=== PATIENT | female | born 1985 | race Caucasian/White ===

== ENCOUNTER 2016-12-12 09:37 | Emergency (ER) | payer MEDICAID ==
[~2016-12-12] VITALS: Ht 160 cm; Wt 49.9 kg
[~2016-12-12 09:37] MED LIST: AMOX-355 PO; CODE-54 PO; FERR-57 PO; FLUO20CA25 PO; Fluoxetine Hcl PO; GABA-486 PO; HYDR-3812 PO; IBP600T1 PO; IBP800T; IBUP-1773 PO; NITR-65 PO; ONDA4TAB8 SL; OXYC-12 PO; OXYC5CAP10; POLY17PO23 PO; PREN-93 PO
--- NOTE | 2016-12-12 09:58 | ED GU-Female ---
General Chief Complaint: Abdominal/GI Problems Stated Complaint: MENSTRAL PAIN, SPOTTING, NO Nursing Triage Note: PT CO OF ABD PAIN IN [place] AND THRU TO BACK, STATES PEEING BLOOD, PT STATES THINKS MAY BE PERIOD SPOTTING, HAS PAIN AND BURNING UPON URINATION Nursing Sepsis Screen: No Definite Risk Source: patient, RN notes reviewed Exam Limitations: no limitations History of Present Illness Time seen by provider: 09:52 Initial Comments As above and below. Onset 2 days ago. Timing/Duration: other (see above) Severity/Quality: moderate, aching (04/01) Location: LLQ Radiation: left flank Activities at Onset: none Prior Genitourinary Problems: similar symptoms Modifying Factors: Worsens With Urinating Associated Symptoms: abdominal pain (LLQ), dysuria Allergies and Home Medications Allergies Coded Allergies: oxycodone (Verified Allergy, Mild, 05/08/16) Home Medications Diclofenac Potassium 50 Mg Tablet, 50 MG PO Q8H PRN for PAIN, #30 Ref 0 Prescribed by: KATHLEEN MONIQUE on 12/12/16 1304 Constitutional: see HPI Gastrointestinal: LLQ, see HPI, abdominal pain (LLQ) Genitourinary: see HPI, burning, dysuria, flank pain (left), hematuria, pain : No All Other Systemes Reviewed Negative Unless Noted: Yes (Negative excepted noted.) Past Eegyboc-Hrmmzl-Oxfqhx Hx Patient Social History Alcohol Use: Denies Use Recreational Drug Use: No Smoking Status: Never a Smoker Recent Foreign Travel: No Contact w/Someone Who Travel: No Recent Infectious Disease Expo: No Recent Hopitalizations: No Immunizations Up To Date Tetanus Booster (TDap): Less than 5yrs Date of Influenza Vaccine: Jul 08, 2013 Seasonal Allergies Seasonal Allergies: Yes Surgeries HX Surgeries: Yes Surgeries: Abdominal, Section Respiratory Hx Respiratory Disorders: No Cardiovascular Hx Cardiac Disorders: Yes Cardiac Disorders: High Cholesterol Neurological Hx Neurological Disorders: Yes (Fibro) Neurological Disorders: Seizure Disorder Reproductive System Hx Reproductive Disorders: No Sexually Transmitted Disease: No HIV/AIDS: No Female Reproductive Disorders: Denies Genitourinary Hx Genitourinary Disorders: Yes (DURING ) Genitourinary Disorders: UTI-Chronic Gastrointestinal Hx Gastrointestinal Disorders: Yes Gastrointestinal Disorders: Gastroesophageal Reflux Musculoskeletal Hx Musculoskeletal Disorders: Yes Musculoskeletal Disorders: Fibromyalgia Endocrine Hx Endocrine Disorders: Yes ("prediabetic") HEENT HX ENT Disorders: No Loss of Vision: Denies Cancer Hx Cancer: No Psychosocial Hx Psychiatric Problems: No Integumentary HX Skin/Integumentary Disorder: Yes (RIGHT HAND DRY) Blood Transfusions Hx Blood Disorders: No Adverse Reaction to a Blood Tr: No Family Medical History Significant Family History: Heart Disease, Cancer, Diabetes, GI Disease, Other Conditions/Hx Physical Exam Vital Signs Vital Sign - Last 12Hours 12/12/16 09:40 Temp 98.4 Pulse 71 Resp 20 B/P (MAP) 121/88 Pulse Ox 95 Capillary Refill : Less Than 3 Seconds General Appearance: WD/WN Cardiovascular: regular rate, rhythm Respiratory: no respiratory distress Rectal: deferred Progress/Results/Core Measures Results/Orders Lab Results My Orders Vital Signs/I&O Blood Pressure Mean: 99 Departure Impression Impression: Primary Impression: LLQ pain Additional Impression: Suspected ruptured ovarian cyst Disposition: 01 HOME, SELF-CARE Condition: Stable Departure-Patient Inst. Decision time for Depature: 13:03 Referrals: [facility] (PCP/Family) Primary Care Physician Patient Instructions: Ovarian Cyst (DC) Scripts Diclofenac Potassium (Diclofenac Potassium) 50 Mg Tablet 50 MG PO Q8H Y for PAIN, #30 TAB 0 Refills Prov: KATHLEEN MONIQUE DO 12/12/16 KATHLEEN MONIQUE DO Dec 12, 2016 09:58
[2016-12-12 10:01] LABS: BILIRUBIN,URINE NEGATIVE (NEGATIVE); KETONES,URINE NEGATIVE (NEGATIVE); LEUKOCYTE ESTERASE ,URINE 1+ (NEGATIVE); NITRITE,URINE NEGATIVE (NEGATIVE); PH,URINE 6 (5-9); PROTEIN,URINE NEGATIVE (NEGATIVE); UROBILINOGEN,URINE NORMAL (NORMAL)
--- NOTE | 2016-12-12 11:22 | Diagnostic Imaging Report ---
PROCEDURE: CT urinary tract, rule out kidney stone. TECHNIQUE: Multiple contiguous axial images were obtained through the abdomen and pelvis without the use of intravenous contrast. INDICATION: Left flank pain. FINDINGS: The lung bases appear clear. The liver, the spleen, the adrenals and the pancreas appear grossly unremarkable for an unenhanced exam. There is history of prior pancreas surgery with diminished or absent pancreatic parenchyma in the distal body and tail region. Correlate with surgical history. The kidneys and the ureters demonstrate no stones. The uterus and adnexa appear unremarkable. There urinary bladder appear unremarkable. There is no significant fluid collection or free fluid in the abdomen or pelvis. Calcifications on the left side of the pelvis are likely related to phleboliths. There is a normal caliber of the abdominal aorta. No significantly enlarged para-aortic lymph nodes seen. There is minimal stranding around the rectum seen. Correlate for possible underlying inflammatory or infectious proctitis. Osseous structures appear grossly unremarkable. IMPRESSION: 1. No urinary stones or hydronephrosis. 2. Minimal fat stranding around the rectum raise question of inflammatory or infectious proctitis. Correlate clinically. Dictated by: Dictated on workstation # [id number]
--- NOTE | 2016-12-12 12:52 | Diagnostic Imaging Report ---
EXAMINATION: US NON OB PELVIS COMP/TRANSVAG. INDICATION: Left lower quadrant pain in a 31-year-old female. TECHNIQUE: Transabdominal and transvaginal grayscale, color Doppler, and pulse duplex imaging of the pelvis was performed. FINDINGS: The uterus measures 8.8 x 6.0 x 4.1 cm. The myometrium is normal in echogenicity without discrete mass. The endometrium measures up to 0.7 cm in thickness. In the lower endometrial canal, there is an ovoid echogenic endoluminal mass measuring 1.4 x 1.3 x 0.5 cm. There is no internal flow within this endoluminal lesion. This lesion is surrounded by a small amount of simple fluid within the endometrial canal. The right ovary measures 2.7 x 3.3 x 2.6 cm. The left ovary measures 2.6 x 1.6 x 1.4 cm. Both ovaries have physiologic in appearance with small follicles present. Blood flow seen in both ovaries by color Doppler imaging and there are normal low resistant waveforms within each ovary. No suspicious adnexal mass or fluid collection. No free pelvic fluid. IMPRESSION: 1. No evidence of ovarian torsion. 2. There is a well-circumscribed echogenic lesion within the lower endometrial canal measuring 1.4 x 1.3 x 0.5 cm. This has no internal vascularity and could represent a small amount of blood products/clot; however, this could also represent a small endometrial polyp. A followup pelvic ultrasound in 6 weeks is recommended to assess for resolution. Dictated by: Dictated on workstation # [id number]
[2016-12-12] MEDS ORDERED: DICL50TA4 PO (13:04)
[2016-12-12 13:09] VITALS: BP 121/88
--- OUTSIDE RECORDS SUMMARY | 2016-12-16 04:44 | XMS REPORT | Continuity of Care Document ---
Author Author [facility] Organization [facility] Address Unknown Phone Unavailable Care Team Providers Care Electrician Constructor Supervisor Name Role Phone PCP Unavailable Source Comments Some departments are not documenting in the electronic medical record. If you do not see the information that you expected, contact Release of Information in the Health Information Management department at [phone] for further assistance in locating additional records.[facility] Active Allergies and Adverse Reactions Not on File Current Medications Not on file Active Problems Not on file Social History Tobacco Use Types Packs/Day Years Used Date Never Assessed Plan of Care Health Maintenance Due Date Last Done Comments Physical (Comprehensive) 1993 Exam Pertussis Vaccine 1997 Tetanus Vaccine 2003 Cervical Cancer Screening 2007 Influenza Vaccine 05/24/2017 Results from Last 3 Months Not on file
--- OUTSIDE RECORDS SUMMARY | 2016-12-16 04:45 | XMS REPORT ---
Author Author LINSEY DOUGHERTY [facility] eClinical[employer] Address Unknown Phone Unavailable Care Team Providers Care Tower Operator Name Role Phone LINSEY DOUGHERTY CP Unavailable Allergies, Adverse Reactions, Alerts Substance Reaction Event Type Oxycodone-Acetaminophen itching Drug Allergy latex Info Not Available Non Drug Allergy Problems Problem Type Condition Code Onset Dates Condition Status Problem Anxiety disorder, unspecified F41.9 Active Problem Other fatigue R53.83 Active Problem Oral contraceptive pill surveillance Z30.41 Active Problem Uncomplicated asthma, unspecified asthma severity J45.909 Active Problem Elevated hemoglobin A1c measurement R73.09 Active Problem Allergic rhinitis, unspecified allergic rhinitis trigger, unspecified rhinitis seasonality J30.9 Active Problem Chronic pain syndrome G89.4 Active Problem Family history of diabetes mellitus Z83.3 Active Problem Routine health maintenance Z00.00 Active Problem Moderate episode of recurrent major depressive disorder F33.1 Active Assessment Allergic rhinitis, unspecified allergic rhinitis trigger, unspecified rhinitis seasonality J30.9 Active Assessment Cough R05 Active Assessment Sore throat J02.9 Active Medications Medication Code System Code Instructions Start Date End Date Status Dosage Escitalopram Oxalate [facility] [address]-51 10 MG Orally Once a day Jul 10, 2016 1 tablet Zyrtec Allergy [facility] [address]-49 10 MG Orally Once a day Aug 03, 2016 Sep 02, 2016 1 tablet Spacer/Aero-Holding Chambers [facility] 0 - Jul 12, 2016 as directed PredniSONE [facility] [address]-68 20 MG Orally Once a day Aug 03, 2016 Aug 08, 2016 2 tablet Fluticasone Propionate [facility] [address]-69 50 MCG/ACT Nasally Twice a day Aug 03, 2016 1 spray in each nostril Procedures Procedure Coding System Code Date Office Visit, Est Pt., Level 3 CPT-4 43467 Aug 03, 2016 STREP A ASSAY W/OPTIC CPT-4 90471 Aug 03, 2016 Vital Signs Date/Time: Aug 03, 2016 Cardiac Monitoring Heart Rate 64 bpm Weight 120.8 lbs Height 63 in BMI 21.40 Index Blood Pressure Diastolic 72 mmHg Blood Pressure Systolic 130 mmHg Results Name Result Date Reference Range Unit Abnormality Flag STREP A (IN HOUSE) ----STREP A negative [id number] ----Control + [id number] ----Lot # [id number] ----Exp date [id number] Summary Purpose eClinicalWorks Submission
--- OUTSIDE RECORDS SUMMARY | 2016-12-16 04:45 | XMS REPORT ---
Author Author BENY OQUENDO Organization [employer] Address Unknown Phone Unavailable Care Team Providers Care Behavioral Health Case Manager Name Role Phone BENY OQUENDO CP Unavailable Allergies No Known Allergies Problems Problem Type Condition Code Onset Dates Condition Status Problem Anxiety disorder, unspecified F41.9 Active Problem Oral contraceptive pill surveillance Z30.41 Active Problem Major depressive disorder, single episode, moderate F32.1 Active Problem Routine health maintenance Z00.00 Active Problem Moderate episode of recurrent major depressive disorder F33.1 Active Problem Elevated hemoglobin A1c measurement R73.09 Active Problem Major depressive disorder, single episode, unspecified F32.9 Active Problem Other fatigue R53.83 Active Problem Chronic pain syndrome G89.4 Active Problem Family history of diabetes mellitus Z83.3 Active Medications No Known Medications Results No Known Results Summary Purpose eClinicalWorks Submission
--- OUTSIDE RECORDS SUMMARY | 2016-12-16 04:45 | XMS REPORT ---
Author Author BENY OQUENDO Organization [employer] Address Unknown Phone Unavailable Care Team Providers Care Oil Driller Name Role Phone BENY OQUENDO CP Unavailable [...] of recurrent major depressive disorder F33.1 Active Medications No Known Medications Results No Known Results Summary Purpose eClinicalWorks Submission
--- OUTSIDE RECORDS SUMMARY | 2016-12-16 04:45 | XMS REPORT ---
Author Author [address]ENDY STRE[address] Organization [employer] Address Unknown Phone Unavailable Care Team Providers Care Icu Rn Name Role Phone WENDY STRE[address] CP Unavailable Allergies No Known Allergies Problems Problem Type Condition Code Onset Dates Condition Status Problem Major depressive disorder, single episode, moderate F32.1 Active Problem Anxiety disorder, unspecified F41.9 Active Problem Moderate episode of recurrent major depressive disorder F33.1 Active Problem Chronic pain syndrome G89.4 Active Problem Routine health maintenance Z00.00 Active Problem Other fatigue R53.83 Active Problem Oral contraceptive pill surveillance Z30.41 Active Problem Family history of diabetes mellitus Z83.3 Active Problem Major depressive disorder, single episode, unspecified F32.9 Active Medications No Known Medications Results No Known Results Summary Purpose eClinicalWorks Submission
--- OUTSIDE RECORDS SUMMARY | 2016-12-16 04:45 | XMS REPORT ---
Author Author ANT HOLLOWAY Organization [employer] Address Unknown Phone Unavailable Care Team Providers Care Exceptional Needs Teacher Name Role Phone ANT HOLLOWAY CP Unavailable Allergies, Adverse Reactions, Alerts Substance Reaction Event Type latex Info Not Available Non Drug Allergy Problems Problem Type Condition Code Onset Dates Condition Status Problem Postnasal drip 784.91 Active Problem Unspecified hereditary and idiopathic peripheral neuropathy 356.9 Active Problem Lumbago 724.2 Active Problem Unspecified disorder of the teeth and supporting structures 525.9 Active Assessment Dental examination Z01.20 Active Problem Nonallopathic lesion of abdomen and other sites, not elsewhere classified 739.9 Active Problem Depressive disorder, not elsewhere classified 311 Active Problem Encounter for long-term (current) use of other medications V58.69 Active Problem Anxiety state, unspecified 300.00 Active Problem Dizziness and giddiness 780.4 Active Problem Headache 784.0 Active Problem Unspecified symptom associated with female genital organs 625.9 Active Problem Other malaise and fatigue 780.79 Active Problem Acute sinusitis, unspecified 461.9 Active Problem Chest pain, unspecified 786.50 Active Problem Unspecified myalgia and myositis 729.1 Active Problem Pain in joint, site unspecified 719.40 Active Problem Unspecified backache 724.5 Active Problem Chronic rhinitis 472.0 Active Problem Abdominal pain, generalized 789.07 Active Problem Abdominal pain, unspecified site 789.00 Active Medications Medication Code System Code Instructions Start Date End Date Status Dosage Fluoxetine NDC 0 not defined Procedures Procedure Coding System Code Date INTRAORL-PERIAPICAL 1 FILM 52055 CPT-4 D0220 Aug 02, 2015 BITEWING - SINGLE FILM CPT-4 D0270 Aug 02, 2015 LTD ORAL EVALUATION - PROBLEM FOCUS CPT-4 D0140 Aug 02, 2015 EXTRAC ERUPTED TOOTH/EXPOSED ROOT CPT-4 D7140 Aug 02, 2015 Vital Signs Date/Time: Aug 02, 2015 Blood Pressure Diastolic 61 mmHg Blood Pressure Systolic 112 mmHg Results No Known Results Summary Purpose eClinicalWorks Submission
--- OUTSIDE RECORDS SUMMARY | 2016-12-16 04:45 | XMS REPORT ---
Author Author LINSEY DOUGHERTY [facility] eClinicalWorks Address Unknown Phone Unavailable Care Team Providers Care Structural Metal Worker Name Role Phone LINSEY DOUGHERTY CP Unavailable Allergies, Adverse Reactions, Alerts Substance Reaction Event Type Oxycodone-Acetaminophen itching Drug Allergy latex Info Not Available Non Drug Allergy Problems Problem Type Condition Code Onset Dates Condition Status Assessment Acute non-recurrent frontal sinusitis J01.10 Active Problem Oral contraceptive pill surveillance Z30.41 Active Problem Anxiety disorder, unspecified F41.9 Active Problem Elevated hemoglobin A1c measurement R73.09 Active Problem Routine health maintenance Z00.00 Active Problem Uncomplicated asthma, unspecified asthma severity J45.909 Active Problem Family history of diabetes mellitus Z83.3 Active Problem Other fatigue R53.83 Active Problem Moderate episode of recurrent major depressive disorder F33.1 Active Problem Chronic pain syndrome G89.4 Active Assessment Elevated hemoglobin A1c measurement R73.09 Active Assessment Uncomplicated asthma, unspecified asthma severity J45.909 Active Assessment Right otitis media, unspecified chronicity, unspecified otitis media type H66.91 Active Medications Medication Code System Code Instructions Start Date End Date Status Dosage Escitalopram Oxalate [facility] [address]-14 10 MG Orally Jul 10, 2016 0.5mg tablet daily X 2 weeks then one tablet daily Spacer/Aero-Holding Chambers [facility] 0 - Jul 12, 2016 as directed ProAir HFA [facility] [address]-92 108 (90 Base) MCG/ACT Inhalation every 4 hrs Jul 12, 2016 2 puffs as needed Augmentin [facility] [address]-77 875-125 MG Orally every 12 hrs Jul 12, 2016 Jul 22, 2016 1 tablet Procedures Procedure Coding System Code Date MEASURE BLOOD OXYGEN LEVEL CPT-4 87391 Jul 12, 2016 Office Visit, Est Pt., Level 3 CPT-4 08298 Jul 12, 2016 Vital Signs Date/Time: Jul 12, 2016 Cardiac Monitoring Heart Rate 64 bpm Weight 119.0 lbs Height 63 in BMI 21.08 Index Oximetry w/ oxygen @ 2L:95 % Blood Pressure Diastolic 86 mmHg Blood Pressure Systolic 124 mmHg Results No Known Results Summary Purpose eClinicalWorks Submission
--- OUTSIDE RECORDS SUMMARY | 2016-12-16 04:45 | XMS REPORT ---
Author Author [address]ENDY [address] Organization [employer] Address Unknown Phone Unavailable Care Team Providers Care Forensic Engineer Name Role Phone WENDY STREET CP Unavailable Allergies No Known Allergies Problems Problem Type Condition Code Onset Dates Condition Status Assessment Anxiety disorder, unspecified F41.9 Active Problem Anxiety disorder, unspecified F41.9 Active Assessment Moderate episode of recurrent major depressive disorder F33.1 Active Problem Routine health maintenance Z00.00 Active Problem Moderate episode of recurrent major depressive disorder F33.1 Active Problem Elevated hemoglobin A1c measurement R73.09 Active Problem Other fatigue R53.83 Active Problem Oral contraceptive pill surveillance Z30.41 Active Problem Chronic pain syndrome G89.4 Active Problem Family history of diabetes mellitus Z83.3 Active Medications No Known Medications Procedures Procedure Coding System Code Date Psychotherapy, patient &/family, 30 minutes, established patient CPT-4 55614 Jul 03, 2016 Results No Known Results Summary Purpose eClinicalWorks Submission
--- OUTSIDE RECORDS SUMMARY | 2016-12-16 04:45 | XMS REPORT ---
Author Author [address]ENDY ST[address] Organization [facility] Address [address] [place] [address] Care Team Providers Care Child Care Centre Director Name Role Phone WENDY STREET Unavailable PROBLEMS Type Condition ICD9-CM Code [id number] Code Onset Dates Condition Status SNOMED Code Problem Oral contraceptive pill surveillance Z30.41 Active 011463450 Problem Anxiety disorder, unspecified F41.9 Active 539866847 Problem Elevated hemoglobin A1c measurement R73.09 Active 950899260 Problem Routine health maintenance Z00.00 Active 343203704 Problem Family history of diabetes mellitus Z83.3 Active 657685989 Problem Other fatigue R53.83 Active 46378483 Problem Moderate episode of recurrent major depressive disorder F33.1 Active 381101902 Problem Chronic pain syndrome G89.4 Active 422316814 ALLERGIES Unknown Allergies SOCIAL HISTORY No smoking Hx information available PLAN OF CARE VITAL SIGNS MEDICATIONS Unknown Medications RESULTS No Results PROCEDURES No Known procedures IMMUNIZATIONS No Known Immunizations
--- OUTSIDE RECORDS SUMMARY | 2016-12-16 04:45 | XMS REPORT ---
Author Author KATHLEEN BAUTISTA [facility] [employer] Address Unknown Phone Unavailable Care Team Providers Care Enrollment Management Vice President Name Role Phone KATHLEEN BAUTISTA CP Unavailable Allergies, Adverse Reactions, Alerts Substance Reaction Event Type latex Info Not Available Non Drug Allergy Problems Problem Type Condition Code Onset Dates Condition Status Assessment Gastroenteritis K52.9 Active Problem Major depressive disorder, single episode, moderate F32.1 Active Problem Anxiety disorder, unspecified F41.9 Active Assessment Primary insomnia F51.01 Active Assessment Fibromyalgia M79.7 Active Problem Moderate episode of recurrent major depressive disorder F33.1 Active Problem Chronic pain syndrome G89.4 Active Problem Routine health maintenance Z00.00 Active Problem Other fatigue R53.83 Active Problem Oral contraceptive pill surveillance Z30.41 Active Problem Family history of diabetes mellitus Z83.3 Active Problem Major depressive disorder, single episode, unspecified F32.9 Active Medications Medication Code System Code Instructions Start Date End Date Status Dosage Amitriptyline HCl [facility] [address]-95 25 MG Orally Once a day April 11, 2016 1 tablet Zofran [facility] [address]-74 8 MG Orally Once a day April 11, 2016 1 tablet Procedures Procedure Coding System Code Date URINALYSIS, AUTO, W/O SCOPE CPT-4 53503 April 11, 2016 URINE TEST CPT-4 07357 April 11, 2016 Office Visit, Est Pt., Level 3 CPT-4 68136 April 11, 2016 Vital Signs Date/Time: April 11, 2016 Cardiac Monitoring Heart Rate 70 bpm Weight 121.2 lbs Height 63 in Blood Pressure Diastolic 74 mmHg Blood Pressure Systolic 114 mmHg Results No Known Results Summary Purpose eClinicalWorks Submission
--- OUTSIDE RECORDS SUMMARY | 2016-12-16 04:46 | XMS REPORT ---
Author Author [address]ENDY [address] Organization [facility] Address [address] [place] [address] Care Team Providers Care Valuation Manager Name Role Phone WENDY STREET Unavailable PROBLEMS Type Condition ICD9-CM Code [id number] Code Onset Dates Condition Status SNOMED Code Assessment Anxiety disorder, unspecified F41.9 May, Active 920362440 Problem Oral contraceptive pill surveillance Z30.41 Active 474917754 Problem Anxiety disorder, unspecified F41.9 Active 591249786 Assessment Major depressive disorder, single episode, moderate F32.1 May, Active 24997591 Problem Elevated hemoglobin A1c measurement R73.09 Active 670113083 Problem Routine health maintenance Z00.00 Active 240530315 Problem Family history of diabetes mellitus Z83.3 Active 716553740 Problem Other fatigue R53.83 Active 63289683 Problem Moderate episode of recurrent major depressive disorder F33.1 Active 759419903 Problem Chronic pain syndrome G89.4 Active 060220374 ALLERGIES Unknown Allergies SOCIAL HISTORY No smoking Hx information available PLAN OF CARE VITAL SIGNS MEDICATIONS Unknown Medications RESULTS No Results PROCEDURES Procedure Date Ordered Related Diagnosis Body Site Psychotherapy, patient &/family, 45 minutes, established patient Jun 11, 2016 IMMUNIZATIONS No Known Immunizations
--- OUTSIDE RECORDS SUMMARY | 2016-12-16 04:46 | XMS REPORT ---
Author Author [address]ENDY [address] Organization [employer] Address Unknown Phone Unavailable Care Team Providers Care Pega Developer Name Role Phone WENDY STREET CP Unavailable Allergies No Known Allergies Problems Problem Type Condition Code Onset Dates Condition Status Problem Anxiety disorder, unspecified F41.9 Active Problem Oral contraceptive pill surveillance Z30.41 Active Problem Major depressive disorder, single episode, moderate F32.1 Active Assessment Anxiety disorder, unspecified F41.9 Active Assessment Major depressive disorder, single episode, moderate [...] patient &/family, 30 minutes, established patient CPT-4 15267 May 01, 2016 Results No Known Results Summary Purpose eClinicalWorks Submission
--- OUTSIDE RECORDS SUMMARY | 2016-12-16 04:46 | XMS REPORT ---
Author Author REJI ESQUIVEL [facility] [employer] Address Unknown Phone Unavailable Care Team Providers Care Weight Engineer Name Role Phone REJI ESQUIVEL CP Unavailable Allergies No Known Allergies Problems Problem Type Condition Code Onset Dates Condition Status Problem Postnasal drip 784.91 Active Problem Unspecified hereditary and idiopathic peripheral neuropathy 356.9 Active Problem Lumbago 724.2 Active Problem Unspecified disorder of the teeth and supporting structures 525.9 Active Problem Nonallopathic lesion of abdomen and [...] Abdominal pain, unspecified site 789.00 Active Medications No Known Medications Results No Known Results Summary Purpose eClinicalWorks Submission
--- OUTSIDE RECORDS SUMMARY | 2016-12-16 04:46 | XMS REPORT ---
Author Author [address]ATH[address] Organization [employer] Address Unknown Phone Unavailable Care Team Providers Care Toolmaker Name Role Phone BHARATHI [address] CP Unavailable Allergies, Adverse Reactions, Alerts Substance Reaction Event Type Oxycodone-Acetaminophen itching Drug Allergy latex Info Not Available Non Drug Allergy Problems Problem Type Condition Code Onset Dates Condition Status Problem Anxiety disorder, unspecified F41.9 Active Assessment Major depressive disorder, single episode, unspecified F32.9 Active Problem Routine health maintenance Z00.00 Active Problem Moderate episode of recurrent major depressive disorder F33.1 Active Problem Elevated hemoglobin A1c measurement R73.09 Active Problem Other fatigue R53.83 Active Problem Oral contraceptive pill surveillance Z30.41 Active Problem Chronic pain syndrome G89.4 Active Problem Family history of diabetes mellitus Z83.3 Active Medications Medication Code System Code Instructions Start Date End Date Status Dosage Escitalopram Oxalate [facility] [address]-44 10 MG Orally Jul 10, 2016 0.5mg tablet daily X 2 weeks then one tablet daily Procedures Procedure Coding System Code Date Office Visit, New Pt., Level 3 CPT-4 73626 Jul 10, 2016 Vital Signs Date/Time: Jul 10, 2016 Cardiac Monitoring Heart Rate 60 bpm Weight 122.0 lbs Height 63 in BMI 21.61 Index Blood Pressure Diastolic 69 mmHg Blood Pressure Systolic 131 mmHg Results No Known Results Summary Purpose [employer] Submission
--- OUTSIDE RECORDS SUMMARY | 2016-12-16 04:46 | XMS REPORT ---
Author Author [address]ENDY [address] Organization [employer] Address Unknown Phone Unavailable Care Team Providers Care Quality Assurance Supervisor Body Name Role Phone WENDY ST[address] CP Unavailable Allergies No Known Allergies Problems Problem Type Condition Code Onset Dates Condition Status Problem Anxiety disorder, unspecified F41.9 Active Problem Routine health maintenance Z00.00 Active [...]
--- OUTSIDE RECORDS SUMMARY | 2016-12-16 04:46 | XMS REPORT ---
Author Author [address]END[address] Organization [facility] Address [address] [place] [address] Care Team Providers Care Director Of [employer] Name Role Phone WENDY STRE[address] Unavailable PROBLEMS Type Condition ICD9-CM Code [id number] Code Onset Dates Condition Status SNOMED Code Assessment Moderate episode of recurrent major depressive disorder F33.1 13 May, 2016 Active 32597049 Problem Oral contraceptive pill surveillance Z30.41 Active 469249563 Problem Anxiety disorder, unspecified F41.9 Active 699569374 Problem Elevated hemoglobin A1c measurement R73.09 Active 663275463 Problem Routine health maintenance Z00.00 Active 723355640 Problem Family history of diabetes mellitus Z83.3 Active 682543472 Problem Other fatigue R53.83 Active 72355363 Problem Moderate episode of recurrent major depressive disorder F33.1 Active 486558260 Problem Chronic pain syndrome G89.4 Active [id number] ALLERGIES Unknown Allergies SOCIAL HISTORY No smoking Hx information available PLAN OF CARE VITAL SIGNS MEDICATIONS Unknown Medications RESULTS No Results PROCEDURES Procedure Date Ordered Related Diagnosis Body Site Psychotherapy, patient &/family, 30 minutes, established patient Jun 05, 2016 IMMUNIZATIONS No Known Immunizations
--- OUTSIDE RECORDS SUMMARY | 2016-12-16 04:47 | XMS REPORT ---
Author Author [address]ENDY [address] Organization [facility] Address [address] [place] [address] Care Team Providers Care Electric Motor Assembler And Tester Name Role Phone WENDY STRE[address] Unavailable PROBLEMS Type Condition ICD9-CM Code [id number] Code Onset Dates Condition Status SNOMED Code Assessment Major depressive disorder, single episode, moderate F32.1 27 May, 2016 Active 03190116 Problem Oral contraceptive pill surveillance Z30.41 Active 939333490 Problem Anxiety disorder, unspecified F41.9 Active 317559107 Problem Elevated hemoglobin A1c measurement R73.09 Active 500147720 Problem Routine health maintenance Z00.00 Active 130378418 Problem Family history of diabetes mellitus Z83.3 Active 485866020 Problem Other fatigue R53.83 Active 91599539 Problem Moderate episode of recurrent major depressive disorder F33.1 Active 562740901 Problem Chronic pain syndrome G89.4 Active 921367489 ALLERGIES Unknown Allergies SOCIAL HISTORY No smoking Hx information available PLAN OF CARE VITAL SIGNS MEDICATIONS Unknown Medications RESULTS No Results PROCEDURES Procedure Date Ordered Related Diagnosis Body Site Psychotherapy, patient &/family, 30 minutes, established patient Jun 19, 2016 IMMUNIZATIONS No Known Immunizations
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
--- OUTSIDE RECORDS SUMMARY | 2016-12-16 04:47 | XMS REPORT ---
Author Author BENY OQUENDO Organization [employer] Address Unknown Phone Unavailable Care Team Providers Care Hotbed Transfer Operator Name Role Phone BENY OQUENDO CP Unavailable Allergies, Adverse Reactions, Alerts Substance [...] Family history of diabetes mellitus Z83.3 Active Assessment Elevated hemoglobin A1c measurement R73.09 Active Assessment Other fatigue R53.83 Active Assessment Chronic pain syndrome G89.4 Active Assessment Anxiety disorder, unspecified F41.9 Active Medications Medication Code System Code Instructions Start Date End Date Status Dosage Gabapentin [facility] [address]-10 100 MG Orally Once a day at bedtime May 01, 2016 1 [place] [address]-67 8 MG Orally Once a day April 11, 2016 1 tablet Fluoxetine NDC 0 20 mg by oral route Once a day 1 capsules Procedures Procedure Coding System Code Date Office Visit, Est Pt., Level 3 CPT-4 44059 May 01, 2016 Vital Signs Date/Time: May 01, 2016 Cardiac Monitoring Heart Rate 68 bpm Weight 120.0 lbs Height 63 in BMI 21.25 Index Blood Pressure Diastolic 68 mmHg Blood Pressure Systolic 102 mmHg Results No Known Results Summary Purpose [employer] Submission
== END 2016-12-12 13:09 | disposition home or self-care (01) ==
LOC: ER 09:37
DX: R10.32 Left lower quadrant pain (principal)
CPT/HCPCS: 74176; 76830; 76856; 81000; 84703; 99282

== ENCOUNTER 2023-01-15 08:32 | Emergency (ER) | payer BC ==
[~2023-01-15] VITALS: Ht 160 cm; Wt 53.9 kg
[~2023-01-15 08:32] MED LIST changes: +ACHD5005 PO; +DICL50TA4 PO; -FLUO20CA25 PO; +FLUO20CA48 PO; -HYDR-3812 PO
[2023-01-15 09:17] LABS: BILIRUBIN,URINE NEGATIVE (NEGATIVE); CLARITY,URINE CLEAR; COLOR,URINE YELLOW; GLUCOSE, URINE (UA) NEGATIVE (NEGATIVE); KETONES,URINE NEGATIVE (NEGATIVE); LEUKOCYTE ESTERASE ,URINE NEGATIVE (NEGATIVE); NITRITE,URINE NEGATIVE (NEGATIVE); PROTEIN,URINE NEGATIVE (NEGATIVE)
--- NOTE | 2023-01-15 09:30 | ED Abdominal Pain ---
General Chief Complaint: Abdominal/GI Problems Stated Complaint: ABD PAIN | BACK PAIN Nursing Triage Note: PT AMB TO RM 9 WITH COMPLAINT LEFT SIDED ABD PAIN FOR 2 WEEKS. STATES HAS WORSENED OVER THE LAST WEEK. FEELS NAUSEATED. UNSURE OF LAST MENSTRUAL CYCLE. Source of Information: Patient Exam Limitations: No Limitations History of Present Illness Date Seen by Provider: Jan 15, 2023 Time Seen by Provider: 08:42 Initial Comments This 37-year-old woman presents to the emergency room with concerns about left- sided and lower abdominal pain for about 2 weeks with associated nausea. She has an unknown LMP, but she believes she had a cycle in October. Urine test was positive. Pain is across the lower abdomen, left greater than right and radiates up into the left abdomen, flank, and back. She has had associated nausea without vomiting, feeling of abdominal pressure, and constipation. She denies fevers. She reports no urinary symptoms. She is a 7 para 5 with a miscarriage and 5 previous C-sections. 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 She does not currently have a women's health provider. Allergies and Home Medications Allergies Coded Allergies: oxycodone (Verified Allergy, Mild, 05/08/16) Patient Home Medication List Home Medication List Reviewed: Yes Diclofenac Potassium (Diclofenac Potassium) 50 Mg Tablet, 50 MG PO Q8H PRN for PAIN Prescribed by: KATHLEEN MONIQUE on 12/12/16 2416 Review of Systems Review of Systems Constitutional: no symptoms reported EENTM: No Symptoms Reported Respiratory: No Symptoms Reported Cardiovascular: No Symptoms Reported Gastrointestinal: See HPI Genitourinary: See HPI Musculoskeletal: no symptoms reported Skin: no symptoms reported Psychiatric/Neurological: No Symptoms Reported Endocrine: No Symptoms Reported Hematologic/Lymphatic: No Symptoms Reported Past Ulhqqua-Bqxeod-Qphswm Hx Patient Social History Tobacco Use?: No Use of E-Cig and/or Vaping dev: No Substance use?: No Alcohol Use?: No Pt feels they are or have been: No Immunizations Up To Date Tetanus Booster (TDap): Less than 5yrs Seasonal Allergies Seasonal Allergies: Yes Past Medical History Surgeries: Yes Abdominal, Section (X5) Respiratory: No Cardiac: Yes High Cholesterol Neurological: No Seizure Disorder : Yes Hx : 7 Hx Para: 5 Hx Total # of Abortions (Sp): 1 Reproductive Disorders: No Female Reproductive Disorders: Denies Sexually Transmitted Disease: No HIV/AIDS: No UTI-Chronic Gastrointestinal: Yes Gastroesophageal Reflux Musculoskeletal: Yes Fibromyalgia Endocrine: No HEENT: No Loss of Vision: Denies Cancer: No Psychosocial: No Integumentary: No Adverse Reaction/Blood Tranf: No Family Medical History Heart Disease, Cancer, Diabetes, GI Disease, Other Conditions/Hx Physical Exam Vital Signs Vital Signs - First Documented 01/15/23 08:55 Temp 36.5 Pulse 66 Resp 18 B/P (MAP) 122/86 (98) Pulse Ox 98 O2 Delivery Room Air Capillary Refill : Less Than 3 Seconds Height/Weight/BMI Height: 5'3.00" Weight: 110lbs. oz. 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, no motor/sensory deficits, alert, normal mood/affect, oriented x 3 Skin: normal color, warm/dry Progress/Results/Core Measures Results/Orders Lab Results Laboratory Tests Test 01/15/23 09:00 01/15/23 09:47 Range/Units Urine Color YELLOW Urine Clarity CLEAR Urine pH 6.0 5-9 Urine Specific [place] 1.020 1.016-1.022 Urine Protein NEGATIVE NEGATIVE Urine Glucose (UA) NEGATIVE NEGATIVE Urine Ketones NEGATIVE NEGATIVE Urine Nitrite NEGATIVE NEGATIVE Urine Bilirubin NEGATIVE NEGATIVE Urine Urobilinogen 0.2 < = 1.0 MG/DL Urine Leukocyte Esterase NEGATIVE NEGATIVE Urine RBC (Auto) NEGATIVE NEGATIVE Urine RBC NONE /HPF Urine WBC 2-5 /HPF Urine Squamous Epithelial Cells 2-5 /HPF Urine Crystals PRESENT H /LPF Urine Amorphous Sediment RARE JONI URATES H /LPF Urine Bacteria FEW H /HPF Urine Casts NONE /LPF Urine Mucus SMALL H /LPF Urine Culture Indicated YES White Blood Count 4.6 4.3-11.0 10^3/uL Red Blood Count 4.45 3.80-5.11 10^6/uL Hemoglobin 11.3 L 11.5-16.0 g/dL Hematocrit 35 35-52 % Mean Corpuscular Volume 79 L 80-99 fL Mean Corpuscular Hemoglobin 25 25-34 pg Mean Corpuscular Hemoglobin Concent 32 32-36 g/dL Red Cell Distribution Width 15.1 H 10.0-14.5 % Platelet Count 212 130-400 10^3/uL Mean Platelet Volume 11.3 9.0-12.2 fL Immature Granulocyte % (Auto) 0 % Neutrophils (%) (Auto) 65 42-75 % Lymphocytes (%) (Auto) 25 12-44 % Monocytes (%) (Auto) 8 0-12 % Eosinophils (%) (Auto) 2 0-10 % Basophils (%) (Auto) 0 0-10 % Neutrophils # (Auto) 3.0 1.8-7.8 10^3/uL Lymphocytes # (Auto) 1.2 1.0-4.0 10^3/uL Monocytes # (Auto) 0.4 0.0-1.0 10^3/uL Eosinophils # (Auto) 0.1 0.0-0.3 10^3/uL Basophils # (Auto) 0.0 0.0-0.1 10^3/uL Immature Granulocyte # (Auto) 0.0 0.0-0.1 10^3/uL Sodium Level 138 135-145 MMOL/L Potassium Level 3.9 3.6-5.0 MMOL/L Chloride Level 108 H 98-107 MMOL/L Carbon Dioxide Level 22 21-32 MMOL/L Anion Gap 8 5-14 MMOL/L Blood Urea Nitrogen 10 7-18 MG/DL Creatinine 0.71 0.60-1.30 MG/DL Estimat Glomerular Filtration Rate 113 BUN/Creatinine Ratio 14 Glucose Level 83 70-105 MG/DL Calcium Level 9.0 8.5-10.1 MG/DL Corrected Calcium 8.8 8.5-10.1 MG/DL Total Bilirubin 0.5 0.1-1.0 MG/DL Aspartate Amino Transf (AST/SGOT) 15 5-34 U/L Alanine Aminotransferase (ALT/SGPT) 8 0-55 U/L Alkaline Phosphatase 39 L 40-136 U/L C-Reactive Protein High Sensitivity 0.07 0.00-0.50 MG/DL Total Protein 6.9 6.4-8.2 GM/DL Albumin 4.3 3.2-4.5 GM/DL Lipase 15 8-78 U/L Human Chorionic Gonadotropin, Quant [id number] H <5 MIU/ML My Orders Orders - LUIS M BABB MD Ua Culture If Indicated (01/15/23 08:42) Urine Bedside (01/15/23 09:10) Cbc With Automated Diff (01/15/23 09:22) Comprehensive Metabolic Panel (01/15/23 09:22) Hs C Reactive Protein (01/15/23 09:22) Lipase (01/15/23 09:22) Ed Iv/Invasive Line Start (01/15/23 09:22) Hcg,Quantitative (01/15/23 09:29) Us Ob<14 Wks Sngle W/Transvag (01/15/23 09:30) Urine Culture (01/15/23 09:00) Vital Signs/I&O 01/15/23 08:55 Temp 36.5 Pulse 66 Resp 18 B/P (MAP) 122/86 (98) Pulse Ox 98 O2 Delivery Room Air Blood Pressure Mean: 98 Progress Progress Note #1: Time: 10:17 Progress Note Patient has been interviewed and examined. She by history has an early with persistent abdominal pain. No ultrasound has yet been performed. Ultrasound is being obtained to rule out ectopic or other pathology. Urinalysis is unremarkable by my interpretation. Remainder of labs are pending at this time. Progress Note #2: Time: 11:31 Progress Note Ultrasound and hCG levels were both consistent with an intrauterine gestation at 4 to 6 weeks gestational age. I discussed the imaging with the clinical technician and reviewed the radiologist's report. The remainder of the labs on the CBC, CMP, lipase and urinalysis were unremarkable by my interpretation. Discharge instructions were reviewed with the patient. Diagnostic Imaging Diagonstic Imaging: Ultrasound Plain Films/CT/US/NM/MRI: pelvis Comments NAME: JAYLENE ARMENTA MED REC#: [id number] PT STATUS: REG ER : 1985 PHYSICIAN: LUIS M BABB MD ADMIT DATE: 01/15/23/ER Draft Date of Exam:01/15/23 US OB<14 WKS SNGLE W/TRANSVAG INDICATION: Abdominal pain. Size and dates. FINDINGS: There is an intrauterine gestational sac and yolk sac. No measurable or identifiable pole or independent cardiac activity is found; therefore, viability could be neither confirmed nor refuted. No varun-sac collection or subchorionic hemorrhage. No evidence for an extrauterine gestation. The mean sac diameter correlates with an age of 5 weeks 5 days. There is a likely corpus luteal cyst in the right ovary measuring 1.5 cm. No adnexal torsion. No free fluid. IMPRESSION: 1. Intrauterine gestational sac and yolk sac; however, viability could not be confirmed at this early stage. Consider serial beta hCG versus short-term sonographic followup. 2. No findings of an extrauterine gestation. 3. The mean sac diameter correlates with an age of 5 weeks 5 days. Dictated on workstation # [id number] Dict: 01/15/23 1112 Trans: 01/15/23 1117 [id number] Interpreted by: BRYAN OKEEFE Departure Impression Primary Impression: Positive test Additional Impressions: Nausea alone Left sided abdominal pain Constipation Qualified Codes: K59.00 - Constipation, unspecified Disposition: 01 HOME, SELF-CARE Condition: Stable Departure-Patient Inst. Decision time for Depature: 11:27 Referrals: NO,LOCAL PHYSICIAN (PCP/Family) Primary Care Physician Patient Instructions: Abdominal Pain, Adult ED, Constipation in Adults Add. Discharge Instructions: Your test was positive in the ER, and your hCG hormone level is consistent with 4 to 6 weeks gestational age. Your ultrasound demonstrated a gestational sac within the uterus measuring 4 to 6 weeks gestational age. No ectopic or other abnormality was seen on the ultrasound. Follow-up with an maintenance welder should be pursued as soon as possible. Since a heartbeat was not seen in this early gestation, a repeat hormone level or repeat ultrasound may be advised by the maintenance welder. Your abdominal pain may be related to constipation. You may use MiraLAX as you are accustomed to for treatment of constipation. Also drink plenty of clear liquids to stay well-hydrated. Eating smaller quantities more often can help reduce nausea. Eat plenty of fruits, vegetables, and whole grains in your diet. Minimize meats, cheeses, processed foods, and fast foods as these may worsen constipation. Juices such as apple juice and prune juice may be helpful in reducing constipation as well. You may take Tylenol (acetaminophen) up to 650 mg every 6 hours as needed for pain. Return to the emergency room if you have worsening of symptoms despite following these instructions. All discharge instructions reviewed with patient and/or family. Voiced understanding. LUIS M BABB MD Jan 15, 2023 09:30
[2023-01-15 09:35] LABS: AMORPHOUS SEDIMENT,UR RARE AMOR URATES /LPF; BACTERIA,URINE FEW /HPF
[2023-01-15 09:55] LABS: BASOPHILS % (AUTO) 0 % (0-10); EOSINOPHILS # (AUTO) 0.1 10^3/uL (0.0-0.3); EOSINOPHILS % (AUTO) 2 % (0-10); HEMATOCRIT 35 % (35-52); HEMOGLOBIN 11.3 g/dL (11.5-16.0); LYMPHOCYTES # (AUTO) 1.2 10^3/uL (1.0-4.0); LYMPHOCYTES % (AUTO) 25 % (12-44); MEAN CORPUSCULAR HEMOGLOBIN 25 pg (25-34); MEAN CORPUSCULAR HGB CONC 32 g/dL (32-36); MEAN CORPUSCULAR VOLUME 79 fL (80-99); MEAN PLATELET VOLUME 11.3 fL (9.0-12.2); MONOCYTES # (AUTO) 0.4 10^3/uL (0.0-1.0); MONOCYTES % (AUTO) 8 % (0-12); NEUTROPHILS % (AUTO) 65 % (42-75); PLATELET COUNT 212 10^3/uL (130-400); WHITE BLOOD COUNT 4.6 10^3/uL (4.3-11.0)
[2023-01-15 10:11] LABS: ALBUMIN 4.3 GM/DL (3.2-4.5); POTASSIUM 3.9 MMOL/L (3.6-5.0)
[2023-01-15 10:13] LABS: TOTAL PROTEIN 6.9 GM/DL (6.4-8.2)
[2023-01-15 10:15] LABS: BILIRUBIN,TOTAL 0.5 MG/DL (0.1-1.0)
[2023-01-15 10:17] LABS: CREATININE SERUM 0.71 MG/DL (0.60-1.30)
--- NOTE | 2023-01-15 11:18 | Diagnostic Imaging Report ---
INDICATION: Abdominal pain. Size and dates. FINDINGS: There is an intrauterine gestational sac and yolk sac. No measurable or identifiable pole or independent cardiac activity is found; therefore, viability could be neither confirmed nor refuted. No varun-sac collection or subchorionic hemorrhage. No evidence for an extrauterine gestation. The mean sac diameter correlates with an age of 5 weeks 5 days. There is a likely corpus luteal cyst in the right ovary measuring 1.5 cm. No adnexal torsion. No free fluid. IMPRESSION: 1. Intrauterine gestational sac and yolk sac; however, viability could not be confirmed at this early stage. Consider serial beta hCG versus short-term sonographic followup. 2. No findings of an extrauterine gestation. 3. The mean sac diameter correlates with an age of 5 weeks 5 days. Dictated by: Dictated on workstation # [id number]
[2023-01-15 11:48] VITALS: BP 118/84
== END 2023-01-15 11:48 | disposition home or self-care (01) ==
LOC: EDUNIT# 08:32 → ER 08:37
DX: O99.611 Diseases of the digestive system complicating pregnancy, first trimester (principal); K59.00 Constipation, unspecified; O26.891 Other specified pregnancy related conditions, first trimester; R11.0 Nausea; Z3A.01 Less than 8 weeks gestation of pregnancy
CPT/HCPCS: 36415; 76801; 76817; 80053; 81000; 83690; 84702; 84703; 85025; 86141; 87088

== ENCOUNTER 2023-01-18 12:01 | Emergency (ER) | payer BC ==
[~2023-01-18] VITALS: Ht 160 cm; Wt 53.0 kg
[2023-01-18 12:02] VITALS: BP 128/83
== END 2023-01-18 12:53 | disposition left against medical advice (07) ==
LOC: EDUNIT# 12:01 → ER 12:03
DX: Z53.21 Procedure and treatment not carried out due to patient leaving prior to being seen by health care provider (principal)

== ENCOUNTER 2023-01-21 18:13 | Emergency (ER) | payer BC ==
[~2023-01-21] VITALS: Ht 160 cm; Wt 53.0 kg
[2023-01-21 18:22] VITALS: BP 140/95
[2023-01-21 19:25] LABS: BILIRUBIN,URINE NEGATIVE (NEGATIVE); CLARITY,URINE CLEAR; COLOR,URINE YELLOW; GLUCOSE, URINE (UA) NEGATIVE (NEGATIVE); KETONES,URINE NEGATIVE (NEGATIVE); LEUKOCYTE ESTERASE ,URINE NEGATIVE (NEGATIVE); NITRITE,URINE NEGATIVE (NEGATIVE); PROTEIN,URINE TRACE (NEGATIVE)
--- NOTE | 2023-01-21 19:25 | ED GU-Female ---
General Chief Complaint: OB < 20 WEEKS Stated Complaint: SPOTTING/CRAMPING APPROX 8 WKS PREG Nursing Triage Note: PT AMB TO TRIAGE. PT STATES STARTED SPOTTING YESTERDAY AND KEEPS HAVING SOME SPOTTING TODAY. PT IS APPROX 8-11 WEEKS . THIS IS PT 7 WITH ONE MISCARRIAGE. PT STATES HAVING LOWER ABD AND BACK CRAMPING RATES PAIN /10 Source: patient Exam Limitations: no limitations History of Present Illness Date Seen by Provider: January 21, 2023 Time Seen by Provider: 18:28 Initial Comments 37-year-old female presents to the ED with complaints of lower abdominal cramping, lower back pain, and spotting for the last 2 weeks. She reports the bleeding is a small amount, and is pinkish-red in color. She reports some nausea, no vomiting. Also reports intermittent left-sided chest pain for the last 2 weeks. Denies fevers, shortness of air, dysuria, vaginal discharge. She is uncertain of her last menstrual cycle. Based on previous ultrasound, she should be at 6 weeks 4 days gestation. Allergies and Home Medications Allergies Coded Allergies: oxycodone (Verified Allergy, Mild, 05/08/16) Patient Home Medication List Home Medication List Reviewed: Yes Diclofenac Potassium (Diclofenac Potassium) 50 Mg Tablet, 50 MG PO Q8H PRN for PAIN Prescribed by: KATHLEEN MONIQUE on 12/12/16 1304 Review of Systems Review of Systems Constitutional: see HPI Past Chwjygd-Vhdwtn-Saxhma Hx Patient Social History Tobacco Use?: No Substance use?: No Alcohol Use?: No Pt feels they are or have been: No Immunizations Up To Date Tetanus Booster (TDap): Less than 5yrs Influenza Vaccine Up-to-Date: Yes; Up-to-Date Seasonal Allergies Seasonal Allergies: Yes Past Medical History Surgery/Hospitalization HX: C-SECTIONS X 5 Surgeries: Yes Abdominal, Section Respiratory: No Cardiac: Yes High Cholesterol Neurological: No Seizure Disorder Reproductive Disorders: No Female Reproductive Disorders: Denies Sexually Transmitted Disease: No HIV/AIDS: No UTI-Chronic Gastrointestinal: Yes Gastroesophageal Reflux Musculoskeletal: Yes Fibromyalgia Endocrine: No HEENT: No Loss of Vision: Denies Cancer: No Psychosocial: No Integumentary: No Adverse Reaction/Blood Tranf: No Family Medical History Heart Disease, Cancer, Diabetes, GI Disease, Other Conditions/Hx Physical Exam Vital Signs Vital Signs - First Documented 01/21/23 18:22 Temp 36.4 Pulse 72 Resp 18 B/P (MAP) 140/95 (110) Pulse Ox 100 Capillary Refill : Less Than 3 Seconds Height, Weight, BMI Height: 5'3.00" Weight: 110lbs. oz. 49.667846os; 20.00 BMI Method:Stated General Appearance: WD/WN, no apparent distress Neck: supple, normal inspection Cardiovascular: regular rate, rhythm Respiratory: lungs clear, normal breath sounds, no respiratory distress, no accessory muscle use Extremities: normal range of motion, normal inspection Neurologic/Psychiatric: alert, normal mood/affect Skin: normal color, warm/dry Progress/Results/Core Measures Suspected Sepsis SIRS Temperature: Pulse: 72 Respiratory Rate: 18 Blood Pressure 140 /95 Mean: 110 Results/Orders Lab Results My Orders Vital Signs/I&O Capillary Refill : Less Than 3 Seconds Blood Pressure Mean: 110 Progress Note : Time: 19:31 Progress Note Patient seen and evaluated, resting comfortably in bed, no acute distress. Based on exam and symptoms, work-up initiated including CBC, BMP, hCG quantitative, troponin, EKG, urinalysis. Patient is O+, will not need RhoGAM injection. ECG Initial ECG Impression Date: January 21, 2023 Initial ECG Impression Time: 19:35 Initial ECG Rate: 60 Initial ECG Rhythm: Normal Sinus Initial ECG Intervals: Normal Initial ECG Impression: Normal Initial ECG Comparisson: No Previous ECG Available Departure Departure-Patient Inst. Referrals: NO,LOCAL PHYSICIAN (PCP/Family) Primary Care Physician FRANKIE BRAND APRN January 21, 2023 19:25
[2023-01-21 19:38] LABS: BASOPHILS % (AUTO) 1 % (0-10); EOSINOPHILS # (AUTO) 0.1 10^3/uL (0.0-0.3); EOSINOPHILS % (AUTO) 2 % (0-10); HEMATOCRIT 36 % (35-52); HEMOGLOBIN 11.4 g/dL (11.5-16.0); LYMPHOCYTES # (AUTO) 1.7 10^3/uL (1.0-4.0); LYMPHOCYTES % (AUTO) 25 % (12-44); MEAN CORPUSCULAR HEMOGLOBIN 25 pg (25-34); MEAN CORPUSCULAR HGB CONC 32 g/dL (32-36); MEAN CORPUSCULAR VOLUME 80 fL (80-99); MEAN PLATELET VOLUME 11.9 fL (9.0-12.2); MONOCYTES # (AUTO) 0.4 10^3/uL (0.0-1.0); MONOCYTES % (AUTO) 6 % (0-12); NEUTROPHILS # (AUTO) 4.4 10^3/uL (1.8-7.8); NEUTROPHILS % (AUTO) 66 % (42-75); PLATELET COUNT 222 10^3/uL (130-400); WHITE BLOOD COUNT 6.6 10^3/uL (4.3-11.0)
[2023-01-21 19:39] LABS: AMORPHOUS SEDIMENT,UR MOD AMOR PHOSPHATE /LPF
[2023-01-21 19:42] LABS: BACTERIA,URINE TRACE /HPF; WBC,URINE RARE /HPF
[2023-01-21 20:11] LABS: CHLORIDE 106 MMOL/L (98-107); POTASSIUM 3.9 MMOL/L (3.6-5.0); SODIUM 138 MMOL/L (135-145)
[2023-01-21 20:12] LABS: CALCIUM 8.8 MG/DL (8.5-10.1); GLUCOSE 95 MG/DL (70-105)
[2023-01-21 20:14] LABS: CARBON DIOXIDE 23 MMOL/L (21-32)
[2023-01-21 20:16] LABS: CREATININE SERUM 0.74 MG/DL (0.60-1.30); GFR ESTIMATED 107
[2023-01-21 20:17] LABS: BUN/CREATININE RATIO 18
== END 2023-01-21 20:37 | disposition left against medical advice (07) ==
LOC: EDUNIT# 18:13 → ER 18:16
DX: O20.9 Hemorrhage in early pregnancy, unspecified (principal); O09.521 Supervision of elderly multigravida, first trimester; O26.891 Other specified pregnancy related conditions, first trimester; R10.30 Lower abdominal pain, unspecified; R11.0 Nausea; O99.891 Other specified diseases and conditions complicating pregnancy; M54.50 Low back pain, unspecified; Z3A.01 Less than 8 weeks gestation of pregnancy
CPT/HCPCS: 36415; 80048; 81000; 84484; 84702; 85025; 93005

== ENCOUNTER 2023-03-17 16:10 | Emergency (ER) | payer MEDICAID, OTHER ==
[~2023-03-17] VITALS: Ht 162 cm; Wt 56.0 kg
--- NOTE | 2023-03-17 16:29 | ED GU-Female ---
General Chief Complaint: OB < 20 WEEKS Stated Complaint: 15 WEEKS / BLEEDING Source: patient Exam Limitations: no limitations History of Present Illness Date Seen by Provider: Mar 17, 2023 Time Seen by Provider: 16:17 Initial Comments 37-year-old female presents for vaginal bleeding during . She is reportedly about 15 weeks . Ultrasound done here to confirm showed intrauterine and no evidence for ectopic . This afternoon she had a gush of blood that she amounts to about 1 cup of fluid. She has not had any bleeding since that time. Incident happened just prior to arrival. She has had some mild abdominal cramping during her but no other significant symptoms. No fevers or chills. All other systems reviewed and negative except documented per HPI. Voice recognition software was used to help create this chart Allergies and Home Medications Allergies Coded Allergies: oxycodone (Verified Allergy, Mild, 05/08/16) Patient Home Medication List Home Medication List Reviewed: Yes Diclofenac Potassium (Diclofenac Potassium) 50 Mg Tablet, 50 MG PO Q8H PRN for PAIN Prescribed by: KATLHEEN MONIQUE on 12/12/16 1304 Review of Systems Review of Systems Constitutional: see HPI Past Bpiilxr-Porjpx-Nvqvzj Hx Patient Social History Tobacco Use?: No Use of E-Cig and/or Vaping dev: No Substance use?: No Alcohol Use?: No Pt feels they are or have been: No Immunizations Up To Date Tetanus Booster (TDap): Less than 5yrs Seasonal Allergies Seasonal Allergies: Yes Past Medical History Surgery/Hospitalization HX: C-SECTIONS X 5 Surgeries: Yes Abdominal, Section Respiratory: No Cardiac: Yes High Cholesterol Neurological: No Seizure Disorder Reproductive Disorders: No Female Reproductive Disorders: Denies Sexually Transmitted Disease: No HIV/AIDS: No UTI-Chronic Gastrointestinal: Yes Gastroesophageal Reflux Musculoskeletal: Yes Fibromyalgia Endocrine: No HEENT: No Loss of Vision: Denies Cancer: No Psychosocial: No Integumentary: No Adverse Reaction/Blood Tranf: No Family Medical History Reviewed Nursing Family Hx Heart Disease, Cancer, Diabetes, GI Disease, Other Conditions/Hx Physical Exam Vital Signs Vital Signs - First Documented 03/17/23 16:17 Pulse 48 Resp 18 B/P (MAP) 143/73 (96) Pulse Ox 98 O2 Delivery Room Air Capillary Refill : Height, Weight, BMI Height: 5'3.00" Weight: 110lbs. oz. 49.479362th; 20.00 BMI Method:Stated General Appearance: WD/WN, no apparent distress HEENT: normal ENT inspection, pharynx normal Neck: full range of motion, supple Cardiovascular: regular rate, rhythm, no murmur Respiratory: chest non-tender, lungs clear, normal breath sounds, no respiratory distress, no accessory muscle use Gastrointestinal: normal bowel sounds, non tender, soft, no organomegaly, other (Abdomen appropriate for gravid age) Extremities: normal range of motion, non-tender, normal inspection, no pedal edema, no calf tenderness Neurologic/Psychiatric: alert, oriented x 3 Skin: normal color, warm/dry Progress/Results/Core Measures Suspected Sepsis SIRS Temperature: Pulse: Respiratory Rate: Laboratory Tests 03/17/23 16:48: White Blood Count 8.5 Blood Pressure / Mean: Laboratory Tests 03/17/23 16:48: Platelet Count 224 Results/Orders Lab Results Laboratory Tests Test 03/17/23 16:48 03/17/23 17:03 Range/Units White Blood Count 8.5 4.3-11.0 10^3/uL Red Blood Count 4.68 3.80-5.11 10^6/uL Hemoglobin 13.0 11.5-16.0 g/dL Hematocrit 39 35-52 % Mean Corpuscular Volume 82 80-99 fL Mean Corpuscular Hemoglobin 28 25-34 pg Mean Corpuscular Hemoglobin Concent 34 32-36 g/dL Red Cell Distribution Width 18.0 H 10.0-14.5 % Platelet Count 224 130-400 10^3/uL Mean Platelet Volume 11.7 9.0-12.2 fL Immature Granulocyte % (Auto) 0 % Neutrophils (%) (Auto) 71 42-75 % Lymphocytes (%) (Auto) 20 12-44 % Monocytes (%) (Auto) 6 0-12 % Eosinophils (%) (Auto) 2 0-10 % Basophils (%) (Auto) 0 0-10 % Neutrophils # (Auto) 6.1 1.8-7.8 10^3/uL Lymphocytes # (Auto) 1.7 1.0-4.0 10^3/uL Monocytes # (Auto) 0.5 0.0-1.0 10^3/uL Eosinophils # (Auto) 0.2 0.0-0.3 10^3/uL Basophils # (Auto) 0.0 0.0-0.1 10^3/uL Immature Granulocyte # (Auto) 0.0 0.0-0.1 10^3/uL Human Chorionic Gonadotropin, Quant 966 H <5 MIU/ML Urine Color YELLOW Urine Clarity CLOUDY Urine pH 6.0 5-9 Urine Specific [place] 1.020 1.016-1.022 Urine Protein NEGATIVE NEGATIVE Urine Glucose (UA) NEGATIVE NEGATIVE Urine Ketones NEGATIVE NEGATIVE Urine Nitrite NEGATIVE NEGATIVE Urine Bilirubin NEGATIVE NEGATIVE Urine Urobilinogen 0.2 < = 1.0 MG/DL Urine Leukocyte Esterase TRACE H NEGATIVE Urine RBC (Auto) 2+ H NEGATIVE Urine RBC RARE /HPF Urine WBC RARE /HPF Urine Squamous Epithelial Cells RARE /HPF Urine Crystals NONE /LPF Urine Bacteria FEW H /HPF Urine Casts NONE /LPF Urine Mucus NEGATIVE /LPF Urine Culture Indicated NO My Orders Orders - RICK DESAI DO Hcg,Quantitative (03/17/23 16:25) Ua Culture If Indicated (03/17/23 16:25) Cbc With Automated Diff (03/17/23 16:25) Type And Screen (03/17/23 16:46) Vital Signs/I&O 03/17/23 16:17 Pulse 48 Resp 18 B/P (MAP) 143/73 (96) Pulse Ox 98 O2 Delivery Room Air Capillary Refill : Departure Communication (Admissions) I personally performed limited bedside US and cannot identify any movement or heartbeat. Spoke with Arthur Mckinnon [place]ie at 1645. recommends discharge and call Dr Hoffman office in the morning. She will be given bleeding precautions for return and Dr Eaton recommends she return to [place] if she needs to come back. I did relay this to the patient but also informed that we were happy to see her here if necessary and could arrange transfer. She states understanding. Blood type is O+, on file from previous visit. No indication for rho chris. She is not currently bleeding and having no pain. Impression Primary Impression: Vaginal bleeding during Disposition: 01 HOME, SELF-CARE Condition: Stable Departure-Patient Inst. Referrals: NO,LOCAL PHYSICIAN (PCP/Family) Primary Care Physician Patient Instructions: Bleeding in Early ED Add. Discharge Instructions: I spoke with Dr. Eaton who is on-call for Dr. Lee. She recommends discharge with follow-up in their office tomorrow. He will need to call the office first thing in the morning. He should return to the emergency department immediately if you develop bleeding that is more than 2 pads per hour for 2 consecutive hours, severe abdominal pain or shortness of breath. She recommends that he go directly to [facility] emergency department however we are happy to see you here and arrange transfer if you wish. All discharge instructions reviewed with patient and/or family. Voiced understanding. Work/School Note: Work Release Form Date Seen in the Emergency Department: Mar 17, 2023 Return to Work: Mar 20, 2023 Restrictions: No Restrictions RICK DESAI DO Mar 17, 2023 16:29
[2023-03-17 16:52] LABS: BASOPHILS % (AUTO) 0 % (0-10); EOSINOPHILS # (AUTO) 0.2 10^3/uL (0.0-0.3); EOSINOPHILS % (AUTO) 2 % (0-10); HEMATOCRIT 39 % (35-52); LYMPHOCYTES # (AUTO) 1.7 10^3/uL (1.0-4.0); LYMPHOCYTES % (AUTO) 20 % (12-44); MEAN CORPUSCULAR HEMOGLOBIN 28 pg (25-34); MEAN CORPUSCULAR HGB CONC 34 g/dL (32-36); MEAN CORPUSCULAR VOLUME 82 fL (80-99); MEAN PLATELET VOLUME 11.7 fL (9.0-12.2); MONOCYTES # (AUTO) 0.5 10^3/uL (0.0-1.0); MONOCYTES % (AUTO) 6 % (0-12); NEUTROPHILS # (AUTO) 6.1 10^3/uL (1.8-7.8); NEUTROPHILS % (AUTO) 71 % (42-75); PLATELET COUNT 224 10^3/uL (130-400); WHITE BLOOD COUNT 8.5 10^3/uL (4.3-11.0)
[2023-03-17 17:09] LABS: BILIRUBIN,URINE NEGATIVE (NEGATIVE); CLARITY,URINE CLOUDY; COLOR,URINE YELLOW; GLUCOSE, URINE (UA) NEGATIVE (NEGATIVE); KETONES,URINE NEGATIVE (NEGATIVE); LEUKOCYTE ESTERASE ,URINE TRACE (NEGATIVE); NITRITE,URINE NEGATIVE (NEGATIVE); PROTEIN,URINE NEGATIVE (NEGATIVE)
[2023-03-17 17:24] LABS: RBC,URINE RARE /HPF; WBC,URINE RARE /HPF
[2023-03-17 17:25] LABS: BACTERIA,URINE FEW /HPF; SQUAMOUS EPITHELIAL CELL,UR RARE /HPF
[2023-03-17 17:50] VITALS: BP 111/67
== END 2023-03-17 17:51 | disposition home or self-care (01) ==
LOC: EDUNIT# 16:10 → ER 16:14
DX: O20.9 Hemorrhage in early pregnancy, unspecified (principal); Z3A.15 15 weeks gestation of pregnancy
CPT/HCPCS: 36415; 81000; 84702; 85025; 99281; 99282

== ENCOUNTER 2023-03-30 06:47 | Observation (INO) | payer BC, MEDICAID ==
[~2023-03-30] VITALS: Ht 162 cm; Wt 56.0 kg
[2023-03-30] VITALS (10 sets, daily range): BP systolic 92–123; BP diastolic 52–76
[2023-03-30] MEDS ORDERED: NS IV 1000 ML 1,000 ML IV STA (07:10)
--- NOTE | 2023-03-30 07:14 | ED Abdominal Pain ---
General Chief Complaint: OB < 20 WEEKS Stated Complaint: MISCARRIAGE Nursing Triage Note: BROUGHT IN BY [facility] FOR VAGINAL BLEEDING, ABDOMINAL CRAMPING, NAUSEA, DIZZINESS AFTER TAKING CYTOTEC AT 1700, 2100, 0145. REPORTS HEAVY BLEEDING STARTED APPROX. 1800 03/29/23 Source of Information: Patient Exam Limitations: No Limitations History of Present Illness Date Seen by Provider: Mar 30, 2023 Time Seen by Provider: 07:00 Initial Comments Patient is a 37-year-old G7, P5 who presents to the emergency room with severe diffuse abdominal cramping and heavy vaginal bleeding. Patient was seen here in the emergency department 03/17 diagnosed with miscarriage, approximately 14 01/27. She saw her OB provider within the last week and started Cytotec last evening at 5 PM and 2 pills per vagina every 4 hours. Approximately 2 hours after the first dose of Cytotec she started bleeding. She has had persistent cramping and heavy vaginal bleeding since. She states she has passed 2 large masses of clot versus tissue "the size of my hand". She has taken ibuprofen and Tylenol without relief of symptoms. She is very anxious. She is nauseated. No fevers or chills. No dysuria urgency or frequency. Believes the last dose of Cytotec around 145 may have come out when she went to the bathroom. Timing/Duration: Other (9 hours) Severity/Quality: Severe, Cramping Location: Generalized Abdomen Activities at Onset: None Associated Symptoms: Nausea/Vomiting (nausea) Allergies and Home Medications Allergies Coded Allergies: oxycodone (Verified Allergy, Mild, 05/08/16) Patient Home Medication List Home Medication List Reviewed: Yes Diclofenac Potassium (Diclofenac Potassium) 50 Mg Tablet, 50 MG PO Q8H PRN for PAIN Prescribed by: KATHLEEN MONIQUE on 12/12/16 1304 Last Action: Reviewed Review of Systems Review of Systems Constitutional: see HPI Respiratory: No Symptoms Reported Cardiovascular: No Symptoms Reported Gastrointestinal: Abdominal Pain, Nausea Genitourinary: Other (vaginal bleeding) Musculoskeletal: no symptoms reported Skin: no symptoms reported Psychiatric/Neurological: Anxiety All Other Systems Reviewed Negative Unless Noted: Yes Past Objagtz-Vahbht-Lwbupo Hx Patient Social History Tobacco Use?: No Substance use?: No Alcohol Use?: No Pt feels they are or have been: No Immunizations Up To Date Tetanus Booster (TDap): Less than 5yrs Seasonal Allergies Seasonal Allergies: Yes Past Medical History Surgery/Hospitalization HX: C-SECTIONS X 5, HLD, UTI, GERD, SEIZURES Surgeries: Yes Abdominal, Section Respiratory: No Cardiac: Yes High Cholesterol Neurological: No Seizure Disorder Reproductive Disorders: No Female Reproductive Disorders: Denies Sexually Transmitted Disease: No HIV/AIDS: No UTI-Chronic Gastrointestinal: Yes Gastroesophageal Reflux Musculoskeletal: Yes Fibromyalgia Endocrine: No HEENT: No Loss of Vision: Denies Cancer: No Psychosocial: No Integumentary: No Adverse Reaction/Blood Tranf: No Family Medical History Heart Disease, Cancer, Diabetes, GI Disease, Other Conditions/Hx Physical Exam Vital Signs Vital Signs - First Documented 03/30/23 06:53 Temp 36.8 Pulse 64 Resp 20 B/P (MAP) 95/60 (72) Pulse Ox 100 O2 Delivery Room Air Capillary Refill : Less Than 3 Seconds Height/Weight/BMI Height: 5'3.00" Weight: 110lbs. oz. [id number]; 21.00 BMI Method:Stated General Appearance: WD/WN, moderate distress, thin HEENT: PERRL/EOMI Respiratory: lungs clear, normal breath sounds, no respiratory distress, no accessory muscle use Cardiovascular: regular rate, rhythm (50-60 HR) Gastrointestinal: soft, tenderness (soft with diffuse tenderness; voluntary guarding) Genital/Rectal: other (excessive vaginal bleeding with products of conception visualised and palpated in the cervix; a little more than 200ml suctioned) Extremities: normal range of motion, normal inspection Neurologic/Psychiatric: alert, oriented x 3, other (anxious, tearful) Skin: warm/dry, pallor Progress/Results/Core Measures Results/Orders Lab Results Laboratory Tests Test 03/30/23 07:00 Range/Units White Blood Count 11.5 H 4.3-11.0 10^3/uL Red Blood Count 3.63 L 3.80-5.11 10^6/uL Hemoglobin 10.3 L 11.5-16.0 g/dL Hematocrit 31 L 35-52 % Mean Corpuscular Volume 85 80-99 fL Mean Corpuscular Hemoglobin 28 25-34 pg Mean Corpuscular Hemoglobin Concent 33 32-36 g/dL Red Cell Distribution Width 17.1 H 10.0-14.5 % Platelet Count 176 130-400 10^3/uL Mean Platelet Volume 11.5 9.0-12.2 fL Immature Granulocyte % (Auto) 0 % Neutrophils (%) (Auto) 92 H 42-75 % Lymphocytes (%) (Auto) 5 L 12-44 % Monocytes (%) (Auto) 2 0-12 % Eosinophils (%) (Auto) 0 0-10 % Basophils (%) (Auto) 0 0-10 % Neutrophils # (Auto) 10.6 H 1.8-7.8 10^3/uL Lymphocytes # (Auto) 0.6 L 1.0-4.0 10^3/uL Monocytes # (Auto) 0.3 0.0-1.0 10^3/uL Eosinophils # (Auto) 0.0 0.0-0.3 10^3/uL Basophils # (Auto) 0.0 0.0-0.1 10^3/uL Immature Granulocyte # (Auto) 0.0 0.0-0.1 10^3/uL Neutrophils % (Manual) 88 % Lymphocytes % (Manual) 10 % Monocytes % (Manual) 2 % Eosinophils % (Manual) 0 % Basophils % (Manual) 0 % Band Neutrophils 0 % Anisocytosis SLIGHT Microcytosis SLIGHT My Orders Orders - TINO HAYNES MD Ed Iv/Invasive Line Start (03/30/23 07:10) Cbc With Automated Diff (03/30/23 07:10) Ns Iv 1000 Ml (Sodium Chloride 0.9%) (03/30/23 07:10) Fentanyl Inj (Sublimaze Injection) (03/30/23 07:15) Ondansetron Injection (Zofran Injectio (03/30/23 07:15) Manual Differential (03/30/23 07:00) Fentanyl Inj (Sublimaze Injection) (03/30/23 07:45) Medications Given in ED Current Medications Medications Dose Ordered Sig/Anam Route Start Time Stop Time Status Last Admin Dose Admin Fentanyl Citrate 50 mcg ONCE ONCE IVP 03/30/23 07:15 03/30/23 07:16 DC 03/30/23 07:32 50 MCG Fentanyl Citrate 50 mcg ONCE ONCE IVP 03/30/23 07:45 03/30/23 07:46 DC 03/30/23 07:52 50 MCG Ondansetron HCl 4 mg ONCE ONCE IVP 03/30/23 07:15 03/30/23 07:16 DC 03/30/23 07:29 4 MG Vital Signs/I&O 03/30/23 03/30/23 03/30/23 06:53 07:47 08:05 Temp 36.8 Pulse 64 58 79 Resp 20 16 20 B/P (MAP) 95/60 (72) 100/66 (77) 117/70 (86) Pulse Ox 100 100 100 O2 Delivery Room Air Room Air Blood Pressure Mean: 72 Progress Progress Note : Time: 07:55 Progress Note Patient seen and examined by me. Evaluation today includes physical exam with speculum exam, CBC, basic metabolic panel, coags as well as [id number] ultrasound at the bedside by me. Pertinent physical exam findings well-d eveloped well-nourished thin female in moderate distress, crying due to abdominal pain. Abdomen, suprapubic diffusely tender. Bowel sounds are present. Rest of the abdomen is soft. Heart is regular, not tachycardic blood pressure slightly at 100 systolic. Lungs are clear. Differential diagnosis based on history and physical exam, incomplete miscarriage, acute hemorrhage Labs independently reviewed and interpreted by me. CBC shows a white count slightly elevated 11.5, hemoglobin slightly low at 10.3 with a hematocrit of 31. Normal platelets at 176. Chemistry generally within normal limits with a slightly elevated glucose at 155, coag profile is within normal limits. Bedside ultrasound transabdominal shows what appears to be products in the uterus. No evidence of a fetus. Speculum exam shows significant amount of blood in the vaginal vault, approximately 200 mL of blood was suctioned to evaluate the cervix which appears opened with retained products. Gentle bimanual exam does reveal dilated cervix with products in the cervix. Case was discussed with Dr. Ragland on for [facility] called this morning. He advised type and cross for 2 units as well as he will take her to the OR this morning for exam under anesthesia and D&C. Findings and plan of care have been communicated to the patient. She was treated with multiple doses of IV fentanyl for pain control. She had IV fluids running throughout. She is comfortable with the plan of care. Departure Communication (Admissions) Time/Spoke to Admitting Phy: 08:[address] Ragland (OB) will take to OR Impression Primary Impression: Incomplete with delayed or excessive hemorrhage Disposition: ADMITTED INPATIENT Condition: Stable Admissions Decision to Admit Reason: Admit from ER (General) Decision to Admit/Date: Mar 30, 2023 Time/Decision to Admit Time: 08:08 Departure-Patient Inst. Referrals: NO,LOCAL PHYSICIAN (PCP/Family) Primary Care Physician TINO HAYNES MD Mar 30, 2023 07:14
[2023-03-30] MEDS ORDERED: ONDANSETRON 4 MG/2 ML (SDV) Z0FRAN IVP ONE (07:15)
[2023-03-30] MEDS ORDERED: fentaNYL INJ 100 MCG/2 ML AMP IVP ONE ×2 (07:15→07:45)
[2023-03-30 07:16] LABS: BASOPHILS % (AUTO) 0 % (0-10); EOSINOPHILS % (AUTO) 0 % (0-10); HEMATOCRIT 31 % (35-52); HEMOGLOBIN 10.3 g/dL (11.5-16.0); LYMPHOCYTES # (AUTO) 0.6 10^3/uL (1.0-4.0); LYMPHOCYTES % (AUTO) 5 % (12-44); MEAN CORPUSCULAR HEMOGLOBIN 28 pg (25-34); MEAN CORPUSCULAR HGB CONC 33 g/dL (32-36); MEAN CORPUSCULAR VOLUME 85 fL (80-99); MEAN PLATELET VOLUME 11.5 fL (9.0-12.2); MONOCYTES # (AUTO) 0.3 10^3/uL (0.0-1.0); MONOCYTES % (AUTO) 2 % (0-12); NEUTROPHILS # (AUTO) 10.6 10^3/uL (1.8-7.8); NEUTROPHILS % (AUTO) 92 % (42-75); PLATELET COUNT 176 10^3/uL (130-400); WHITE BLOOD COUNT 11.5 10^3/uL (4.3-11.0)
[2023-03-30 07:39] LABS: ANISOCYTOSIS SLIGHT; BAND NEUTROPHILS 0 %; BASOPHILS % (MANUAL) 0 %; EOSINOPHILS % (MANUAL) 0 %; LYMPHOCYTES % (MANUAL) 10 %; MICROCYTOSIS SLIGHT; MONOCYTES % (MANUAL) 2 %; NEUTROPHILS % (MANUAL) 88 %
[2023-03-30 08:22] LABS: BASOPHILS % (AUTO) 0 % (0-10); EOSINOPHILS % (AUTO) 0 % (0-10); HEMATOCRIT 26 % (35-52); HEMOGLOBIN 8.8 g/dL (11.5-16.0); LYMPHOCYTES # (AUTO) 0.6 10^3/uL (1.0-4.0); LYMPHOCYTES % (AUTO) 5 % (12-44); MEAN CORPUSCULAR HEMOGLOBIN 29 pg (25-34); MEAN CORPUSCULAR HGB CONC 34 g/dL (32-36); MEAN CORPUSCULAR VOLUME 85 fL (80-99); MEAN PLATELET VOLUME 12.1 fL (9.0-12.2); MONOCYTES # (AUTO) 0.3 10^3/uL (0.0-1.0); MONOCYTES % (AUTO) 3 % (0-12); NEUTROPHILS # (AUTO) 10.9 10^3/uL (1.8-7.8); NEUTROPHILS % (AUTO) 92 % (42-75); PLATELET COUNT 163 10^3/uL (130-400); WHITE BLOOD COUNT 11.8 10^3/uL (4.3-11.0)
[2023-03-30 08:26] LABS: POTASSIUM 3.7 MMOL/L (3.6-5.0)
[2023-03-30 08:27] LABS: CALCIUM 8.2 MG/DL (8.5-10.1); INR 1.1 (0.8-1.4); PROTHROMBIN TIME PATIENT 14.7 SEC (12.2-14.7)
[2023-03-30] MEDS ORDERED: LACTATED RINGERS 1,000 ML IV SCH (08:30)
[2023-03-30 08:31] LABS: CREATININE SERUM 0.75 MG/DL (0.60-1.30)
[2023-03-30] MEDS ORDERED: NS IV 500 ML 500 ML ONE (08:54)
[2023-03-30] MEDS ORDERED: fentaNYL INJ 100 MCG/2 ML AMP ONE (08:56)
[2023-03-30] MEDS ORDERED: MIDAZOLAM 2 MG/2 ML (VERSED) VIAL ONE (08:56)
[2023-03-30] MEDS ORDERED: NS (IVPB) 50 ML ONE (09:12)
[2023-03-30] MEDS ORDERED: ceFAZolin INJECTION 2,000 MG ONE (09:12)
[2023-03-30] MEDS ORDERED: LACTATED RINGERS 1,000 ML IV PRN (09:15)
[2023-03-30] MEDS ORDERED: METHYLERGONOVINE 0.2 MG/ML (METHERGINE) AMP ONE ×2 (09:44→19:57)
[2023-03-30] MEDS ORDERED: ONDANSETRON 4 MG/2 ML (SDV) Z0FRAN ONE ×2 (09:57→10:31)
[2023-03-30] MEDS ORDERED: proPOfol 200 MG/20 ML (DIPRIVAN) VIAL IV ONE (09:57)
[2023-03-30] MEDS ORDERED: ETOMIDATE IV SOLN 20 MG/10 ML VIAL ONE (09:57)
[2023-03-30] MEDS ORDERED: SEVOFLURANE (ULTANE) 15 ML INHAL SOLN ONE (10:02)
[2023-03-30] MEDS ORDERED: morphine INJ 4 MG/ML 1 ML (VIAL/SYRINGE) ONE (10:43)
[2023-03-30] MEDS ORDERED: morphine INJ 10 MG/ML 1ML (SYR OR VIAL) IVP ONE (10:45)
[2023-03-30] MEDS ORDERED: ONDANSETRON 4 MG/2 ML (SDV) Z0FRAN IVP PRN ×2 (10:45→13:30)
[2023-03-30] MEDS ORDERED: PROMETHAZINE INJ 25 MG/ML (PHENERGAN) AMP IVP ONE (10:45)
--- NOTE | 2023-03-30 10:56 | OB/GYN Operative Report ---
Operative Report Date of Procedure:Mar 30, 2023 Preoperative Diagnosis: Second Trimester SAB, Retained Placental Products, Vaginal Bleeding Postoperative Diagnosis: SAME Name of the Procedure: Suction D&C (US Guided) Surgeon: Phong Clark D.O. Video Engineer(s): None Anesthesia: General Anesthesia (LMA) Underground Roof Bolter: Isis Harmon CRNA Indications for Procedure: 37 y.o. with documented 12 1/7 week IUP around 02/26/23 and demise documented 03/17/23 approximately 12-14 weeks known SAB, OB provider in [place], patient undergoing vaginal cytotec 400 mcg q4 hrs overnight presents to our ED with products of conception at cervical os per ED provider and approximately 100 mL of blood in ED, in addition to heavy vaginal bleeding per patient prior to presentation. Patient with progressive drop in HGB as well (11 at 7AM, 8 at 8AM) taken to OR for emergent suction D&C. Patient received 1 unit PRBC at start of case (see description below). Note, patient's mother states fetus passed intact and at patient's home after visit with her in post-op waiting area. Findings of the Procedure: Abdominal US by me prior to start showed no fetus in uterus, abundant products of conception only. Speculum exam in OR with approximately 50 mL of blood and dilated cervix to 2-3 cm with placental products at external os, could not be removed intact with ring forceps. Uterus approx 15 weeks size, anteverted. Large amounts of products removed with blood and clots. Large and mostly intact placental cake removed with suction during case. Name and Description of the Procedure: Suction D&C (US Guided) Antibiotics: Ancef 2 gm IV Drain: Becerra (removed at end of case) Fluids: Crystalloid: 1,000 ML PRBC: 1 Unit Urine: 200 ML EBL 300 ML Specimens: Products of Conception Complications: None Condition: Stable Description: The patient was counseled for surgery verbally and in writing. She was taken to the OR and transferred to OR table, underwent general anesthesia with LMA without complication. She was placed in low-lithotomy position. I performred an exam under anesthesia and found the uterus to be anteverted. An abdominal US by me showed no fetus in the uterus, what appeared to be placental tissue only. She had a becerra placed and a Betadine vaginal prep was performed. A surgical time out was done. The patient had SCDs on. A bivalved speculum was inserted into the vagina. The anterior lip of the cervix was grasped with a tenaculum. A 12 mm suction cannula was inserted easily into the uterus easily through an already dilated cervix. Moderate amounts of products of conception was obtained, followed by the mostly intact placental cake. The entire uterine cavity was carefully explored with the suction cannula with no further tissue obtained. There was no bleeding from the uterus at this time. An abdominal ultrasound was performed and the lower uterine segment appeared thin with small amount of blood versus possible tissue in the uterine fundus. One more pass in the uterine cavity was made with the suction cannula and a very small amount of tissue was removed, the uterine cavity having already undergone very gentle curettage with not tissue obtained. A repeat abdominal ultrasound was performed and the entire uterine cavity appeared thin. The tenaculum was removed from the anterior lip of the cerix. Silver nitrate was applied locally to the anterior cervix tenaculum sites for hemostasis. The uterus was not bleeding at the end of the case. The speculum and becerra was removed at the end of the case. The LMA was removed at the end of the case and the patient was transferred to the recovery area in good condition. Disposition: The patient went to ICU for recovery. I spoke with the patient's mother and explained the case in the OR waiting area, with no questions or concerns voiced by her. Will get post-transfusion CBC 4 hours post-op, observe overnight. PHONG CLAKR DO Mar 30, 2023 10:56
--- NOTE | 2023-03-30 11:18 | History & Physical-OB/GYN ---
History of Present Illness History of Present Illness Reason for visit/HPI 37 y.o. with known 12-14 weeks SAB followed by OB provider in [place] presents to ED with heavy vaginal bleeding, dilated cervix and retained products of conception at cervical os, taken to OR for emergent Suction D&C (see operative report for details). Mother of patient reports intact fetus passed at home. Patient had US 02/26/23 with 12 1/7 week viable then, seen in our ED around 03/17/23 with no cardiac activity per ED provider on bedside US. Patient reports passing large amounts of clots at home while self-administering vaginal cytotec 400 mcg q4h per her OB provider instructions. Fetus apparently passed at home but still has retained placenta at dilated cervix with approximately 100 ML blood in vagina per ED provider this AM when I was notified about patient. HCT at 0700 today 31 (39% previously), repeat CBC ordered by me and at 0814 drawn and HCT then 26. Patient taken to OR for emergent Suction D&C, received 1 unit PRBC at start of case (see operative report for details). PMH: Neg PSH: Laparatomy as a 3 year old (has RLQ appy scar, states surgeons decided not to remove appy and also has a 4 inch vertical supra-umbilical scar from that encounter). Exploratory surgey done due to "bleeding" patient not good historian about that case. x 5, only onther besides this one was a complete SAB at 10 weeks Allergy: Oxycodone (uncertain reaction , does not recall SOB) Meds: None SHx: Occasional ETOH when not , denies smoking or drug abuse Review of Systems negative for all major sytems (HEENT, CV, Respiratory, GI/, Skin, Neuro, Endocrine) besides HPI above. Date of Admission 03/30/23 Date Seen by a Provider: Mar 30, 2023 Time Seen by a Provider: 20:00 I consulted on this patient on 03/30/23 at 0810 Attending Physician Ana Lilia,Local Physician. Her OB provider in [place] is Dr. Lee Admitting Physician Admitting Physician: Phong Ragland DO Attending Physician: Phong Ragland DO Consult None Allergies and Home Medications Allergies Coded Allergies: oxycodone (Verified Allergy, Mild, 05/08/16) Patient Home Medication List Home Medication List Reviewed: Yes Diclofenac Potassium (Diclofenac Potassium) 50 Mg Tablet, 50 MG PO Q8H PRN for PAIN Prescribed by: KATHLEEN MONIQUE on 12/12/16 1304 Last Action: Reviewed Past Rnmmdio-Dxentq-Ivvyks Hx Patient Social History Recent Hopitalizations: No Alcohol Use?: No Pt feels they are or have been: No Immunizations Up To Date Tetanus Booster (TDap): Less than 5yrs Date of Influenza Vaccine: Jul 08, 2013 Seasonal Allergies Seasonal Allergies: Yes Surgeries Yes Abdominal, Section Respiratory No Cardiovascular Yes High Cholesterol Neurological No Seizure Disorder Reproductive System Hx Reproductive Disorders: No Sexually Transmitted Disease: No HIV/AIDS: No Female Reproductive Disorders: Denies Genitourinary UTI-Chronic Gastrointestinal Yes Gastroesophageal Reflux Musculoskeletal Yes Fibromyalgia Endocrine History of Endocrine Disorders: No HEENT History of HEENT Disorders: No Loss of Vision: Denies Cancer No Psychosocial History of Psychiatric Problem: No Integumentary History of Skin or Integumenta: No Blood Transfusions Adverse Reaction to a Blood Tr: No Family Medical History Significant Family History: Heart Disease, Cancer, Diabetes, GI Disease, Other Conditions/Hx Review of Systems Constitutional: see HPI EENTM: see HPI Respiratory: see HPI Cardiovascular: see HPI Gastrointestinal: see HPI Genitourinary: see HPI : Yes Musculoskeletal: see HPI Skin: see HPI Psychiatric/Neurological: See HPI Physical Exam Physical Exam Vital Signs Vital Signs Date Time Temp Pulse Resp B/P (MAP) Pulse Ox O2 Delivery O2 Flow Rate FiO2 03/30/23 08:59 36.6 63 16 102/63 97 Room Air 03/30/23 08:57 36.6 79 16 102/63 (76) 99 Room Air 03/30/23 08:35 76 16 99/58 (72) 100 Room Air 03/30/23 08:23 67 16 89/54 (66) 98 Room Air 03/30/23 08:05 79 20 117/70 (86) 100 Room Air 03/30/23 07:47 58 16 100/66 (77) 100 03/30/23 06:53 36.8 64 20 95/60 (72) 100 Room Air I & O 03/30/23 07:00 Intake Total 300 ml Balance 300 ml Capillary Refill : Less Than 3 Seconds Labs Laboratory Tests 03/30/23 07:00: White Blood Count 11.5H, Red Blood Count 3.63L, Hemoglobin 10.3L, Hematocrit 31L , Mean Corpuscular Volume 85, Mean Corpuscular Hemoglobin 28, Mean Corpuscular Hemoglobin Concent 33, Red Cell Distribution Width 17.1H, Platelet Count 176, Mean Platelet Volume 11.5, Immature Granulocyte % (Auto) 0, Neutrophils (%) (Auto) 92H, Lymphocytes (%) (Auto) 5L, Monocytes (%) (Auto) 2, Eosinophils (%) (Auto) 0, Basophils (%) (Auto) 0, Neutrophils # (Auto) 10.6H, Lymphocytes # (Auto) 0.6L, Monocytes # (Auto) 0.3, Eosinophils # (Auto) 0.0, Basophils # (Auto) 0.0, Immature Granulocyte # (Auto) 0.0, Neutrophils % (Manual) 88, Lymphocytes % (Manual) 10, Monocytes % (Manual) 2, Eosinophils % (Manual) 0, Basophils % (Manual) 0, Band Neutrophils 0, Anisocytosis SLIGHT, Microcytosis SLIGHT, Prothrombin Time 14.7, INR Comment 1.1, Activated Partial Thromboplast Time 29, Sodium Level 141, Potassium Level 3.7, Chloride Level 109H, Carbon Dioxide Level 20L, Anion Gap 12, Blood Urea Nitrogen 14, Creatinine 0.75, Estimat Glomerular Filtration Rate 106, BUN/Creatinine Ratio 19, Glucose Level 155H, Calcium Level 8.2L 03/30/23 08:14: White Blood Count 11.8H, Red Blood Count 3.05L, Hemoglobin 8.8L, Hematocrit 26L, Mean Corpuscular Volume 85, Mean Corpuscular Hemoglobin 29, Mean Corpuscular Hemoglobin Concent 34, Red Cell Distribution Width 16.9H, Platelet Count 163, Mean Platelet Volume 12.1, Immature Granulocyte % (Auto) 0, Neutrophils (%) (Auto) 92H, Lymphocytes (%) (Auto) 5L, Monocytes (%) (Auto) 3, Eosinophils (%) (Auto) 0, Basophils (%) (Auto) 0, Neutrophils # (Auto) 10.9H, Lymphocytes # (Auto) 0.6L, Monocytes # (Auto) 0.3, Eosinophils # (Auto) 0.0, Basophils # (Auto) 0.0, Immature Granulocyte # (Auto) 0.1 Radiology Studies None. See HPI and operative report General Appearance: Mild Distress Respiratory: Lungs Clear Cardiovascular: Regular Rate, Rhythm Abdominal: non tender Gynecology/General: Other (See H&P and operative report) Comments See operative report for SENIOR LIBRARIAN exam and US findings at time of emergent surgery Assessment/Plan Assessment and Plan # 37 y.o. with known SAB 12-14 weeks with OB provider in [place], patient self-administering Cytotec vaginally at home per OB provider for SAB. Patient presents to ED with retained placental products, heavy vaginal bleeding and progressive drop in HGB from 11 to 8 in one hour time. # Counseled and consented for emergent Suction D&C, patient type and crossed x 2 units PRBCs, given 1 unit at start of case. Patient also counseled in detail about risk of need for possible abdominal hysterectomy if placenta accreta with uncontrolled bleeding encountered at surgery. Patient has had 5 C-Sections in the past and this is her 7th . Diagnosis: Second Trimester SAB Heavy Vaginal Bleeding Anemia due to vaginal bleeding Plan: Emergent Suction D&C Surgery went well (see op report). Plan for 23 hour observation. Admission Diagnosis Second Trimester SAB Retained Products of Conception Heavy Vaginal Bleeding Anemia due to vaginal bleeding, blood loss Admission Status: Observation PHONG RAGLAND DO Mar 30, 2023 11:18
[2023-03-30] MEDS: LACTATED RINGERS 1,000 ML IV SCH ×2 (11:30→21:28)
--- NOTE | 2023-03-30 12:23 | Progress Note ---
Standard Progress Note Progress Notes/Assess & Plan Date Seen by a Provider: Mar 30, 2023 Time Seen by a Provider: 12:10 Progress/Assessment & Plan Day of Surgery, Emergent Suction D&C for 2nd trimester SAB with retained placental products, transfused 1 unit PRBC in OR Patient stable and resting in room. I discussed the surgical procedure with her and she appeared satisfied. No additional questions. Will give her Methergine 0.2 mg q6 hours overnight to keep uterus firm, decrease bleeding. Check post-transfusion CBC at 1400 hours. Anticipate discharge tomorrow. Final Diagnosis Second Trimester SAB Retained Placenta Products Heavy Vaginal Bleeding Anemia of Blood Loss due to vaginal bleeding HPONG CLARK DO Mar 30, 2023 12:23
--- NOTE | 2023-03-30 12:48 | Anesthesia-General Post-Op ---
General Patient Condition Mental Status/LOC: Same as Preop Cardiovascular: Satisfactory Nausea/Vomiting: Absent Respiratory: Satisfactory Pain: Controlled Complications: Absent Post Op Complications Complications None Follow Up Care/Instructions Patient Instructions None needed. Anesthesia/Patient Condition Patient Condition Patient is doing well, no complaints, stable vital signs, no apparent adverse anesthesia problems. No complications reported per nursing. TONY WHITE CRNA Mar 30, 2023 12:48
[2023-03-30] MEDS: IBUPROFEN 600 MG (MOTRIN) TAB PO PRN ×2 (13:31→20:05)
[2023-03-30] MEDS: ACETAMINOPHEN 325 MG TABLET PO PRN ×2 (13:31→20:05)
[2023-03-30] MEDS ORDERED: METHYLERGONOVINE 0.2 MG (MEHTERGINE) TAB PO ONE ×2 (14:00→19:59)
[2023-03-30 14:20] LABS: BASOPHILS % (AUTO) 0 % (0-10); EOSINOPHILS % (AUTO) 0 % (0-10); HEMATOCRIT 27 % (35-52); HEMOGLOBIN 8.9 g/dL (11.5-16.0); LYMPHOCYTES % (AUTO) 12 % (12-44); MEAN CORPUSCULAR HEMOGLOBIN 29 pg (25-34); MEAN CORPUSCULAR HGB CONC 34 g/dL (32-36); MEAN CORPUSCULAR VOLUME 85 fL (80-99); MEAN PLATELET VOLUME 11.3 fL (9.0-12.2); MONOCYTES # (AUTO) 0.3 10^3/uL (0.0-1.0); MONOCYTES % (AUTO) 4 % (0-12); NEUTROPHILS % (AUTO) 84 % (42-75); PLATELET COUNT 139 10^3/uL (130-400); WHITE BLOOD COUNT 8.3 10^3/uL (4.3-11.0)
[2023-03-30] MEDS: METHYLERGONOVINE 0.2 MG (MEHTERGINE) TAB PO SCH (20:04)
[2023-03-31 00:10] VITALS: BP 89/51
[2023-03-31] MEDS: METHYLERGONOVINE 0.2 MG (MEHTERGINE) TAB PO SCH ×2 (02:05→08:18)
[2023-03-31] MEDS: ACETAMINOPHEN 325 MG TABLET PO PRN ×2 (02:05→08:18)
[2023-03-31] MEDS: IBUPROFEN 600 MG (MOTRIN) TAB PO PRN ×2 (02:06→08:18)
[2023-03-31 04:05] VITALS: BP 85/53
[2023-03-31 08:15] VITALS: BP 99/52
--- NOTE | 2023-03-31 08:46 | Short Stay Summary ---
Discharge Summary Hospital Course Final Diagnosis: 2nd Trimester SAB, Retained Products Hospital Course Date of Admission: Mar 30, 2023 at 13:24 Admission Diagnosis : 2nd Trimester SAB, Retained Placenta, Heavy Uterine Bleeding, Anemia due to Uterine Bleeding Family Physician/Provider: Ana Lilia,Local Physician Date of Discharge: 03/31/23 Discharge Diagnosis: 2nd Trimester SAB, Retained Placenta, Heavy Uterine Bleeding, Anemia due to heavy uterine bleeding, Post Suction D&C Hospital Course: Patient taken to the OR directly from the ED with retained placenta, heavy bleeding and anemia. Underwent uncomplicated suction D&C procedure under US guidance. Received 1 unit PRBC at start of case. Uncomplicated observation status post-procedure. Patient has appointment with her provider Dr. Lee in [place], [place]. Patient will call office to notify them about what transpired. RH +. Patient's partner to get vasectomy for contraception. Advised no sexual activity, imersion in water for next 3 weeks. No questions or concerns voiced. Labs and Pending Lab Test: Laboratory Tests 03/30/23 14:08: White Blood Count 8.3, Red Blood Count 3.11L, Hemoglobin 8.9L, Hematocrit 27L, Mean Corpuscular Volume 85, Mean Corpuscular Hemoglobin 29, Mean Corpuscular Hemoglobin Concent 34, Red Cell Distribution Width 16.7H, Platelet Count 139, Mean Platelet Volume 11.3, Immature Granulocyte % (Auto) 0, Neutrophils (%) (Auto) 84H, Lymphocytes (%) (Auto) 12, Monocytes (%) (Auto) 4, Eosinophils (%) (Auto) 0, Basophils (%) (Auto) 0, Neutrophils # (Auto) 7.0, Lymphocytes # (Auto) 1.0, Monocytes # (Auto) 0.3, Eosinophils # (Auto) 0.0, Basophils # (Auto) 0.0, Immature Granulocyte # (Auto) 0.0 Home Meds Active Diclofenac Potassium 50 Mg Tablet 50 Mg PO Q8H PRN Assessment/Pt Instructions Post-op Day #1 status post suction D&C for 2nd trimester SAB at home with retained products, heavy uterine bleeding. Doing well, status post transfusion 1 unit PRBCs and suction D&C procedure. No sex or swimming for next 3 weeks, return to hospital for heavy bleeding, fever, or severe abdominal pain. Follow up with your provider tomorrow as scheduled. Discharge Instructions Discharge Diet: No Restrictions Activity as Tolerated: Yes Discharge Physical Examination General Appearance: Alert, Oriented X3 Abdominal: No Tenderness Extremities: No Tenderness/Swelling Skin: No Rashes Neuro: Normal Gait, Normal Speech, Normal Tone Psych/Mental Status: Mental Status NL Allergies: Coded Allergies: oxycodone (Verified Allergy, Mild, 05/08/16) Discharge Summary Date of Admission Mar 30, 2023 at 13:24 Date of Discharge 03/31/23 Discharge Date: Mar 31, 2023 Discharge Time: 08:45 Admission Diagnosis Second Trimester SAB Retained Placenta Heavy Uterine Bleeding Anemia due to Uterine Bleeding Consults/Procedures Procedures General Anesthesia Suction D&C (Ultrasound Guided) Discharge Diagnosis Second Trimester SAB Retained Placenta Heavy Uterine Bleeding Anemia due to Heavy Uterine Bleeding Post Transfusion 1 unit PRBC Post Suction D&C PHONG CLARK DO Mar 31, 2023 08:42
[2023-03-31 10:00] VITALS: BP 99/52
== END 2023-03-31 10:00 | disposition home or self-care (01) ==
LOC: EDUNIT# 06:47 → ER 06:48 → SDC 08:24 → WSo 13:23 → WS 13:24
PROVIDERS: ADMIT Obstetrics & Gynecology; ATTEND Obstetrics & Gynecology
DX: O03.4 Incomplete spontaneous abortion without complication (principal); D50.0 Iron deficiency anemia secondary to blood loss (chronic)
CPT/HCPCS: 36415; 80048; 85007; 85025; 85027; 85610; 85730; 86850; 86900; 86901; 86920; 96361; 96376